=== PATIENT | female | born 1960 | race Caucasian/White ===

== ENCOUNTER → 2021-01-31 17:39 | Outpatient (CLI) | payer OTHER, SELFPAY ==
--- NOTE | ~2021-01-31 | MM_ITS ---
EXAMINATION: MM screening gomez BI w lolly HISTORY: Screening TECHNIQUE: Craniocaudal and mediolateral oblique 3-D tomosynthesis images were obtained and synthetic 2-D images were generated. CAD analysis was submitted and interpreted. COMPARISON: No prior mammogram is available for comparison at this institution. BREAST PARENCHYMAL COMPOSITION: There are scattered areas of fibroglandular density. FINDINGS: There are bilateral breast masses centered in the upper outer quadrant of both breasts as w ell as the periareolar location of the right breast. There are no suspicious calcifications or jhonathan ectural distortion. IMPRESSION: 1. Bilateral breast masses. 2. Additional mammographic views and possible breast ultrasound are recommended. BI-RADS Category 0: Incomplete: Needs additional imaging evaluation. Reviewed, dictated and finalized at location A. IMPRESSION: 1. Bilateral breast masses. 2. Additional mammographic views and possible breast ultrasound are recommended . BI-RADS Category 0: Incomplete: Needs additional imaging evaluation.
--- NOTE | ~2021-01-31 | DEXA_ITS ---
Bone Density Report Name: Ivy Stratton Age: 60 Sex: Female Ethnicity: White Date of : 1960 Indication: postmenopausal osteoporosis; Referring Provider: Jessica Guajardo Study: Bone densitometry was performed. Exam Date: January 31, 2021 Accession number: [id number] Bone Density: Region BMD T-score Z-score Classification AP Spine (L1-L4) 0.776 -2.5 -1.2 Osteoporosis Femoral Neck (Left) 0.563 -2.6 -1.4 Osteoporosis Total Hip (Left) 0.627 -2.6 -1.7 Osteoporosis Femoral Neck (Right) 0.550 -2.7 -1.5 Osteoporosis Total Hip (Right) 0.644 -2.4 -1.6 Osteopenia Total Hip Mean 0.636 -2.5 -1.7 Osteoporosis World Health Organization criteria for BMD impression classify patients as: Normal (T-score at or above -1.0), Osteopenia (T-score between -1.0 and -2.5), or Osteoporosis (T-score at or below -2.5). 10-year Fracture Risk: FRAX not reported because: Some T-score for Spine Total or Hip Total or Femoral Neck at or below -2.5 Previous Exams: Region Exam Age BMD T-score BMD Change BMD Change Date g/cm2 vs Baseline vs Previous AP Spine(L1-L4) 01/31/2021 60 0.776 -2.5 -0.035* 0.009 08/11/2017 56 0.768 -2.5 -0.044 -0.044 05/30/2014 53 0.811 -2.1 Total Hip(Left) 01/31/2021 60 0.627 -2.6 -0.040* -0.068 08/11/2017 56 0.695 -2.0 0.028 0.028 05/30/2014 53 0.667 -2.3 Total Hip(Right) 01/31/2021 60 0.644 -2.4 -0.024 -0.047 08/11/2017 56 0.691 -2.1 0.023 0.023 05/30/2014 53 0.668 -2.2 *Denotes significance at 95% confidence level, LSC for AP Spine = 0.022 g/cm2, LSC for Total Hip = 0.027 g/cm2 Clinical Information Provided by Patient: Has used the following medications: Vitamin D, Calcium, MTV Patient maximum height was 62.0 Menopause Age: 47 Drinks caffeinated beverages Onset of menses at age 14 Number of children 2 Impression: The patient has osteoporosis, based on the Right Femoral Neck T-score. No significant bone loss was observed. Discussion: INCREASED RISK OF FRACTURE. BONE DENSITY IS UNDESIRABLY LOW AT ONE OR MORE SKELETAL SITES, CONSISTENT WITH POSTMENOPAUSAL OSTEOPOROSIS. This patient's lowest T-score meets the World Health Organization's (WHO) criteria for osteoporosis at one or more sites (T-score -2.5 or below). In untreated patients, the risk of osteoporotic fracture increases approximately two-fold for ea
== END ==
PROVIDERS: PCP Family Medicine; Visit Provider Advanced Practice Midwife
DX: Z12.31 Encounter for screening mammogram for malignant neoplasm of breast (principal); Z13.820 Encounter for screening for osteoporosis; R92.8 Other abnormal and inconclusive findings on diagnostic imaging of breast; M81.0 Age-related osteoporosis without current pathological fracture; M85.851 Other specified disorders of bone density and structure, right thigh
CPT/HCPCS: 77063; 77067; 77080

== ENCOUNTER 2021-06-15 01:11 | Inpatient (IN) | payer OTHER, SELFPAY ==
[2021-06-15] VITALS (38 sets, daily range): BP systolic 140–169; BP diastolic 68–99; PULSE 59–106; RESP 12–28; TEMP 36.4–37.3; O2SAT 90–100; BMI 30.4
--- NOTE | ~2021-06-15 | CT_ITS ---
EXAMINATION: CT abdomen pelvis w con DATE: 06/15/2021 03:55 INDICATION: Abdominal pain. Nausea, chills and weakness. TECHNIQUE: Computed tomography (CT) of the abdomen and pelvis was performed with 100 mL Omnipaque-350 intravenous contrast. Automated exposure control and iterative reconstruction technique were employe d. The dose-length product was 444.69 mGy-cm. COMPARISON: None FINDINGS: Tiny calcified pleural plaque versus surgical clip along chronic band of discoid atelectasis/scarring in the right lower lobe. Heart size is normal. No pericardial or pleural effusion. Dense mitral ang lar calcification. Postoperative change of prior Elda-en-Y gastric bypass procedure. The proximal por tion of the stomach extends into a small sliding-type hiatal hernia. There is a swirled appearance to the Elda limb which undergoes two complete revolutions. The jejunojejunal anastomosis in the left ab domen. There is prominent mesenteric edema and pulmonary venous engorgement associated with multiple loops of small bowel. Portal veins appear to compress where the rapid 180 degrees around the superior mesenteric artery. There may be some mild wall thickening of the small bowel in the left abdomen but no dilated bowel to suggest obstruction. Normal appendix. Colon is unremarkable. No pneumatosis, abs cess or free intraperitoneal gas. Mild intra and extra hepatic biliary ductal dilation which appears slightly increased since the prior study. This could be related to prior cholecystectomy and sphincterotomy with surgical clips at the gallbladder fossa. A few small splenic calcifications consistent with old granulomatous disease. 1 cm fluid-filled likely duodenal diverticulum arising from the third portion of the duodenum. Pancreas, bilateral adrenal glands and left kidney are normal. 5 mm right renal cyst. Bladder, uterus and adnex a are unremarkable. Small amount of likely either reactive or physiologic free fluid in the right adn exal region. No pathologically enlarged abdominal or pelvic lymphadenopathy. Mild to moderate thoraco lumbar spondylosis. IMPRESSION: 1. Prior Elda-en-Y gastric bypass with the not excluded portion of the stomach extending into a small sliding-type hiatal hernia. 2. Possible wall thickening in the small bowel with associated portal vein engorgement and mesenteric edema. The dilated portal veins abruptly decompress where the clinical 180 degrees around the superi or mesenteric vein. This does not appear to be directly associated with a twist with 720 degree rotat ion of the Elda limb which is seen in the left abdomen and which is new since the prior study per dis cussion with Dr. Claire, the patient's lactate is not elevated and the planned this to further asses s for obstruction or mucosal abnormalities along the small bowel with a upper GI study. 3. Slight increase in mild intra and extra hepatic biliary ductal dilation which may relate to prior cholecystectomy and sphincterotomy. Correlate with liver function tests. Reviewed, dictated and finalized at location A. IESEL DIVISION MANAGER IMPRESSION: 1. Prior Elda-en-Y gastric bypass with the not excluded portion of the stomach extending into a small sliding-type hiatal hernia. 2. Possible wall thickening in the small bowel with associated portal vein engo rgement and mesenteric edema. The dilated portal veins abruptly decompress wher e the clinical 180 degrees around the superior mesenteric vein. This does not a ppear to be directly associated with a twist with 720 degree rotation of the Ro ux limb which is seen in the left abdomen and which is new since the prior stud y per discussion with Dr. Claire, the patient's lactate is not elevated and th e planned this to further assess for obstruction or mucosal abnormalities along the small
--- NOTE | ~2021-06-15 | XR_ITS ---
EXAMINATION: XR abdomen NG/feed tube insert DATE: 06/15/2021 07:10 INDICATION: Post nasogastric tube placement TECHNIQUE: A supine view of the abdomen and lower chest was obtained for evaluation of feeding tube placement. COMPARISON: CT dated 06/15/2021 FINDINGS: Nasogastric tube tip in proximal side port in the stomach. Suture line in the left upper quadrant con sistent with prior gastric bypass procedure. Cholecystectomy clips in right upper quadrant. Excreted contrast in the bilateral kidneys related to the earlier contrast-enhanced CT. Mild bibasilar atelect asis. Cardiomediastinal silhouette is normal. Mild S-shaped curvature of the thoracolumbar spine. IMPRESSION: 1. Nasogastric tube in the stomach. Reviewed, dictated and finalized at location A. TRIC LOCOMOTIVE CRANE OPERATOR
--- NOTE | ~2021-06-15 | XR_ITS ---
EXAMINATION: XR UGI water soluble w sbs DATE: 06/15/2021 12:49 INDICATION: Abdominal pain with possible small bowel obstruction. TECHNIQUE: Water-soluble contrast was injected into the patient's existing nasogastric tube. Conventi onal supine abdomen radiographs and fluoroscopic spot radiographs of the esophagus, stomach, and prox imal small bowel were obtained. Additional overhead radiographs were obtained during the transit thro ugh the small bowel. Fluoroscopy exposure time was 1.1 minutes. Total of 10 overhead radiographs and 23 fluoroscopic images were recorded. Total DAP was 20.263 mGycm^2. COMPARISON: CT dated 06/15/2021 FINDINGS: Small sliding-type hiatal hernia. There was a small amount of gastroesophageal reflux observed during the contrast injection. Elda-en-Y gastric bypass with nonobstructing volvulus of the Elda limb. Ther e is prompt passage of contrast beyond the jejunojejunal anastomosis. There is partial small bowel ob struction in the left upper quadrant located approximately 50-60 cm distal to the jejunojejunal anast omosis. Contrast is first seen extending into relatively decompressed small bowel distal to the obstr uction at the 1 1/2 hour time point. Contrast reaches the colon by 3 hours. Through 4 hours the small bowel distal to the obstruction remains relatively decompressed with persistent mild dilation of the small bowel proximal to the site of obstruction. There is normal caliber and mucosal fold pattern th roughout the small bowel. No mucosal fold thickening to suggest small bowel mural edema. Cholecystect venecia clips in right upper quadrant. Excreted contrast the bladder from the earlier contrast-enhanced C T. IMPRESSION: 1. Partial small bowel obstruction in the left upper quadrant approximately 50-60 cm distal to the je junojejunal anastomosis of a Elda-en-Y gastric bypass. 2. Small sliding-type hiatal hernia with small amount of gastroesophageal reflux. Reviewed, dictated and finalized at location A. ITALITY TEAM MEMBER IMPRESSION: 1. Partial small bowel obstruction in the left upper quadrant approximately 50- 60 cm distal to the jejunojejunal anastomosis of a Elda-en-Y gastric bypass. 2. Small sliding-type hiatal hernia with small amount of gastroesophageal reflu x.
[2021-06-15 01:59] LABS: Basophils Percent Auto 0.3 % (0.2-1.2); Hematocrit 39.6 % (37.0-47.0); Hemoglobin 13.9 g/dL (12.0-15.0); Immature Granulocyte Absolute 0.02 K/mm3 (0.00-0.031); Immature Granulocyte Percent A 0.3 % (0-0.5); Lymphocytes Absolute Auto 0.69 K/mm3 (0.9-3.2); Lymphocytes Percent Auto 9.6 % (18.3-44.2); Mean Corpuscular HGB Conc 35.1 g/dl (32-36); Mean Corpuscular Hemoglobin 35.7 pg (26-34); Mean Corpuscular Volume 101.8 fl (80-100); Mean Platelet Volume 9.2 fl (7.4-10.4); Monocytes Absolute Auto 0.2 K/mm3 (0.1-0.6); Monocytes Percent Auto 2.2 % (2.6-8.5); Neutrophils Absolute Auto 6.3 K/mm3 (1.3-6.7); Neutrophils Percent Auto 87.6 % (45.5-73.1); Platelet Count Result 328 k/mm3 (150-375); Red Blood Count 3.89 M/mm3 (4.2-5.4); Red Cell Distribution Width 12.1 % (11.5-14.5); White Blood Count 7.2 K/mm3 (4.5-10.0)
[2021-06-15 02:09] LABS: Alanine Aminotransferase 45 U/L (4-35); Albumin Level 4.4 g/dL (3.5-5.1); Alkaline Phosphatase 196 U/L (38-126); Anion Gap 13 mmol/L (8-16); Aspartate Amino Transferase 38 U/L (14-36); Bilirubin,Total 1.2 mg/dL (0.2-1.3); Blood Urea Nitrogen 11 mg/dL (7-17); Calcium 9.5 mg/dL (8.4-10.2); Carbon Dioxide 27 mmol/L (22-30); Chloride 98 mmol/L (98-107); Estimated CRCL calculation 93 ml/min; Estimated Glomerular Filt Rate > 60; Glucose 200 mg/dL (65-110); Lipase 22 U/L (23-300); Potassium 3.8 mmol/L (3.4-5.0); Sodium 138 mmol/L (137-145)
[2021-06-15] MEDS: PROCHLORPERAZINE EDISYLATE 10 MG/2 ML VIAL IV PUSH (03:15)
[2021-06-15] MEDS: SODIUM CHLORIDE 0.9% IV 1,000 ML 999 ML IV CONT (03:15)
[2021-06-15] MEDS: diphenhydrAMINE HCl INJ 50 MG/ML VIAL IV PUSH (03:15)
[2021-06-15] MEDS: MORPHINE SULFATE (*CRX) 4 MG/ML INJ IV PUSH ×5 (03:15→19:56)
--- NOTE | 2021-06-15 04:41 | ED.GENADULT ---
HPI - General Adult General Chief complaint: Abdominal Pain Stated complaint: nausea, chills Time Seen by Provider: 06/15/21 02:59 History of Present Illness HPI narrative: Patient 60-year-old female presents emergency department with chief complaint of abdominal pain and nausea and feeling as though she wants to vomit. The patient reports that she has history of a gastric bypass and has developed fistulas before in her abdomen and required surgery that was done at a hospital in [facility]. The patient states that she now has discomfort throughout her abdomen reports is not improved by anything nor is worsened by anything. Related Data Allergies Allergy/AdvReac Type Severity Reaction Status Date / Time poison keo extract Allergy Unknown RASH Verified 06/15/21 02:53 vancomycin Allergy Unknown Unknown Verified 06/15/21 02:53 adhesive tape AdvReac Unknown RASH,ITCHIN Verified 06/15/21 02:53 G codeine AdvReac Unknown NAUSEA Verified 06/15/21 02:53 Review of Systems Review of Systems: A 10 system review of systems was completed on the patient and is negative except for what is stated in the HPI. Nursing and ancillary documentation was reviewed. 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 HEAD: Normocephalic, atraumatic. EYES: PERRLA and EOMI. ENT: Nares clear, no rhinorrhea or epistaxis. Mucous membranes moist. NECK: Supple. CHEST: Clear to auscultation. No respiratory distress. HEART: Regular rate and rhythm. No murmur heard. Normal peripheral pulses. ABDOMEN: Soft, diffusely tender to palpation, nondistended, normal active bowel sounds. EXTREMITIES: Normal range of motion. No edema. SKIN: Warm, dry, no rash. NEURO: No focal deficits. Alert and oriented x3. PSYCH: Normal mood and affect. Course Course Emergency Course: CT scan showed evidence of a small bowel volvulus. The case was discussed with Dr. Claire who is on-call for general surgery. Dr. Claire is currently reviewing the images and will see the patient. Given her complicated surgical history Dr Claire requested the case be discussed with both [place] and [facility] for possible transfer. Both were contacted and are currently on multi day wait lists and are not adding new patients to the list at this time. Vital Signs Vital signs: Vital Signs Temperature 36.4 C 06/15/21 01:18 Pulse Rate 59 L 06/15/21 01:18 Respiratory Rate 19 06/15/21 01:18 Blood Pressure 153/92 H 06/15/21 01:18 Pulse Oximetry 100 06/15/21 01:18 Temperature 36.4 C 06/15/21 01:18 Pulse Rate 77 06/15/21 04:35 Respiratory Rate 16 06/15/21 04:35 Blood Pressure 140/76 06/15/21 04:35
[2021-06-15] MEDS: ONDANSETRON INJ 4 MG/2 ML VIAL IV PUSH ×3 (06:17→13:37)
--- NOTE | 2021-06-15 06:38 | PC.NURSE ---
Pt states she is unable to urinate at this time.
[2021-06-15 06:57] LABS: Lactic Acid Reflex 1.4 mmol/L (0.7-2.1)
--- NOTE | 2021-06-15 08:14 | PM.IMHP ---
H&P: HPI History of Present Illness Date/Time: 06/15/21 08:14 Chief Complaint: Upper abdominal pain with nausea and vomiting. Narrative: The patient is a 60-year-old white female who presented to the emergency department early this AM (06/15) with chief complaint of abdominal pain and nausea and feeling as though she wants to vomit. The patient reports that she has history of a Leslie en -Y gastric bypass [id number] and in 2017 -2018 developed fistulas in her abdomen and required surgery that was done at a hospital in [place], [place]. She states that this was done by a Dr. Aleman laparoscopically and her impression of what was done was a hiatal hernia repair bringing the gastric pouch back down into the abdomen and perhaps takedown of a gastro-gastric fistula. She states that since recovering from that surgery she has been doing fairly well. She states that the current problem started at 4:30 p.m. yesterday ( 06/14/2021). She had had a normal lunch and was feeling okay until about that time at which time she also then felt nauseated and had dry heaving several times. She has had loose stools once or twice both at home and once here after arriving in the hospital to the ED. The patient states that she now has discomfort throughout her abdomen ( mainly above the level of the umbilicus) and reports is not improved by anything nor is worsened by anything. Workup in the emergency department prior to consultation with me revealed a normal white count, electrolytes and lipase to all be fairly normal. Slight elevation of some LFTs. Subsequent lactic acid at my request was normal. CT scan of the abdomen and pelvis shows some twisting of the mesentery in the upper abdomen but it is difficult to tell whether this is related to her 2 previous upper abdominal surgeries or is new causing a problem. Review of Systems Review of Systems: All systems reviewed & are unremarkable except as noted in HPI and below (HPI) Constitutional: Constitutional: Reports as per HPI, Reports no additional constitutional complaints, Denies chills and Denies fever(s) Eyes: Eyes: Reports no additional eye complaints ENT: Reports Normal hearing present and Denies dizziness Cardiovascular: Cardiovascular: Reports no additional cardiovascular complaints, Denies chest pain and Denies irregular heart rhythm Respiratory: Respiratory: Reports no additional respiratory complaints Gastrointestinal: Gastrointestinal: Reports no additional gastrointestinal complaints, Denies abdominal pain, Denies bloating, Reports loose stools, Reports nausea and Reports vomiting ( Mainly dry heaves since 4:30 p.m. 06/14/2021.) Comments: prior to 4:30 p.m. on 06/14/2021 patient had not noticed any specific abdominal problems and states that she had been feeling fairly well maintaining her usual or current weight over the last several months and since her 2019 surgery in [place], [place]. Genitourinary: Genitourinary: Reports no additional female genitourinary complaints and Denies hematuria Musculoskeletal: Musculoskeletal: Denies back pain Integumentary/Breasts: Skin/Breast: Reports system reviewed and no additional complaints, except as docu Neurologic: Reports Normal hearing present, Denies Abnormal speech present, Denies confusion and Denies dizziness Psychiatric: Psychiatric: Reports no additional psychiatric complaints and Denies confusion Endocrine: Endocrine: Reports no additional endocrine complaints Hematologic/Lymphatic: Hematologic/Lymphatic: Denies easy bleeding and Denies easy bruising Allergic/Immunologic: Allergic/Immunologic: Reports no additional allergic/immunologic complaints [facility] Past Medical History Medical History (Updated 06/15/21 @ 08:23 by Geronimo Claire MD) Acne vulgaris Chronic low back pain without sciatica GERD without esophagitis History of COVID-19 06/2020 Vitamin D deficiency Surgical History Surgical History (Updated 06/15/21 @ 08:23 by Geronimo
--- NOTE | 2021-06-15 08:30 | PC.NURSE ---
Pt taking to x ray for small bowel study
[2021-06-15] MEDS: SODIUM CHLORIDE 0.9% IV 1,000 ML 125 ML IV CONT ×2 (09:41→19:58)
[2021-06-15] MEDS: HALOPERIDOL LACTATE 5 MG/ML VIAL 2 MG IV PUSH (09:41)
[2021-06-15 10:42] LABS: Lactic Acid Reflex 1.1 mmol/L (0.7-2.1)
--- NOTE | 2021-06-15 13:46 | PC.NURSE ---
GI at bedside. Verbal orders to hook patient NG back to low intermittent suction. Morphine and zofran given for pain and nausea.
--- NOTE | 2021-06-15 14:49 | PC.NURSE ---
This patient, Ivy Stratton, was admitted to [facility] Surg Room 321-02. Patient/family oriented to hospital policies and general routines including ID bracelet, bed and alarms, visiting hours, pain management, procedures, bathroom and other care routines, personal items, smoking policy, room service/diet, and visiting hours. Information on how to activate the Rapid Response Team has been discussed. Patient/Family are encouraged to report perceived risks to care and to ask questions if they do not understand what they are told or what they should do.
--- NOTE | 2021-06-15 22:47 | PC.NURSE ---
Patient transferred to [facility]. Report to BIJAL Burton.
--- NOTE | 2021-07-14 16:55 | PM.TDS ---
Transfer Discharge Sum: Prov Provider Date of admission: 06/15/21 07:58 Primary care physician: Susan Montana MD Admitting clinician: Geronimo Claire MD DS: Admitting Diagnosis Discharge Date 06/15/21 Admitting Diagnosis 1. Upper abdominal pain on known etiology DS: Discharge Diagnosis Discharge Diagnosis (1) Small bowel volvulus: Code(s): K56.2 - Volvulus Status: Acute Assessment and Plan: This was shown by the CT scan during workup in the ED. Subsequently an upper GI small-bowel follow-through showed definite transition to more normal small bowel about jail through the small bowel and there was some slowed transit. Because of this the patient's complicated previous surgical history in the abdomen it was felt that the patient would be best suited to be in the hands of a specialty GI surgeon who is well-versed in laparoscopy for complications after Elda Y gastric bypass. Therefore, I consulted the help line at [facility]. They put me in contact with Dr. Grant zaldivar who was on-call for minimally evasive surgery and he accepts the patient in transfer. Radiology was helpful in pushing the radiology studies to [facility] and also creating a discs that had them on it to go with the patient. Nursing was helpful in helping arrange transportation for the patient to [facility] for the transfer. (2) Upper abdominal pain: Code(s): R10.10 - Upper abdominal pain, unspecified Status: Acute Assessment and Plan: It is suspected that this is caused by a internal hernia or adhesions related to the patient's previous multiple intra-abdominal surgeries. Transfer Discharge Sum: Med Medications Active and Home Medications: Home Medications Adult One Daily Multivitamin 1 tablet PO DAILY 06/15/21 [History Confirmed 06/15/21] cholecalciferol (vitamin D3) 2,000 mcg PO BID 06/15/21 [History Confirmed 06/15/21] Transfer Discharge Sum: Hosp Hospital Course Hospital course: Ivy Stratton is a 60 year old female Who presented to the [place] emergency room early this morning. Workup in the emergency department prior to consultation with me revealed a normal white count, electrolytes and lipase to all be fairly normal. Slight elevation of some LFTs. Subsequent lactic acid at my request was normal. CT scan of the abdomen and pelvis shows some twisting of the mesentery in the upper abdomen but it is difficult to tell whether this is related to her 2 previous upper abdominal surgeries or is new causing a problem. Subsequently we mid the patient to the hospital and the NG tube that was placed in the emergency room to decompress and stop the patient's vomiting allowed us to perform a upper GI small bowel follow-through to assess the patient's altered anatomy within the abdomen. Although the dye did passed to the colon in 4 hours it was felt that there was still a definite slow down and some evidence of twisting of the bowel and mesentery suggestive of partial bowel obstruction related to an abnormality within the patient's abdomen. In view of the patient's multiple previous surgeries including a Elda-en-Y gastric bypass I felt that she would be best served in the hands of a GI specialist surgeon. Therefore, I contacted the [facility] transfer line and the Dr. Grant Zaldivar excepted the patient in transfer after a clinical discussion. Time Spent with Patient Time attestation: Total time spent providing and/or coordinating transfer services: Total time spent: Less than 30 minutes Exam Const: General: cooperative, healthy appearing, comfortable, well developed, alert, awake, anxious and uncomfortable ( mainly upper abdominal pain and nausea.); No confusion Orientation/consciousness: patient oriented x3 and No confusion HENMT: Head: normal to inspection Ears: hearing grossly normal bilaterally Mouth: Yes moist mucous membranes Teeth and gingiva: dentition normal Eyes: General: appearance nor
== END 2021-06-15 22:46 | disposition short-term general hospital (02) | DRG 390 ==
LOC: ANHED 07:06 → ANH3MEDSUR 10:07
PROVIDERS: Emergency Medicine; Admitting Provider Surgery; Emergency Provider Emergency Medicine; PCP Family Medicine; Visit Provider Surgery
DX: K56.2 Volvulus (principal); R10.10 Upper abdominal pain, unspecified; L70.0 Acne vulgaris; K21.9 Gastro-esophageal reflux disease without esophagitis; E55.9 Vitamin D deficiency, unspecified; Z28.21 Immunization not carried out because of patient refusal; Z86.16 Personal history of COVID-19; Z98.84 Bariatric surgery status
CPT/HCPCS: 36415; 74177; 74240; 74248; 80053; 83605; 83690; 85025; 96361; 96374; 96375; 96376; 99285; J0780; J1200; J1630; J2270; J2405; J7030; Q9967

== ENCOUNTER 2021-07-31 05:39 | Inpatient (IN) | payer OTHER, SELFPAY ==
[2021-07-31] VITALS (15 sets, daily range): BP systolic 91–137; BP diastolic 66–95; PULSE 98–126; RESP 14–30; TEMP 35.8–36.3; O2SAT 87–100; BMI 28.0
--- NOTE | ~2021-07-31 | CT_ITS ---
EXAMINATION: CTA chest PE abdomen pel DATE: 07/31/2021 07:50 ADJUNCT ENGLISH INSTRUCTOR INDICATION: Chest pain. History of DVT. Abdominal pain. TECHNIQUE: Computed tomographic angiography (CTA) of the chest, abdomen and pelvis was performed with 100 mL Omnipaque-350 intravenous contrast. The dose-length product was 1102.60 mGy-cm. Maximum inten sity projection 3D-reconstructions of the aorta and other arteries were constructed by the [employer] st on a separate workstation. Automated exposure control and iterative reconstruction technique were employed. COMPARISON: CT dated 06/15/2021. FINDINGS: CHEST: Study is technically limited. There is pulmonary embolism involving the main pulmonary arterie s and bilateral segmental and subsegmental pulmonary arteries, moderate thrombus burden. Small left p leural effusion. There is mediastinal lymphadenopathy. There are cholecystectomy clips. Moderate size hiatal hernia with gastric bypass surgery changes. There is dependent atelectasis. There are subpleu ral bands in the right mid and lower lung, likely reflecting mild chronic interstitial disease. No pn eumothorax. No endobronchial lesions. ABDOMEN: Fatty infiltration of the liver. There are cholecystectomy clips. The spleen, pancreas, adre nal glands and kidneys are unremarkable. Nonobstructive bowel gas pattern. There is mild diffuse smal l bowel wall thickening, suspicious for enteritis. No acute osseous abnormality. Moderate thoracic sp ondylosis. IMPRESSION: 1. Bilateral pulmonary embolism involving the main pulmonary arteries, bilateral segmental and subseg mental pulmonary arteries, moderate-large thrombus burden. 2: Bilateral predominantly lower lobe atelectasis. 3: Small left pleural effusion. 4: Mediastinal lymphadenopathy, likely reactive. 5: Mild diffuse small bowel wall thickening, suspicious for enteritis. No obstruction. Dr. Braeden Foster discussed with Dr. Kezia MD at 07/31/2021 07:58 ADJUNCT ENGLISH INSTRUCTOR. Reviewed, dictated and finalized at location A. NCT ENGLISH INSTRUCTOR IMPRESSION: 1. Bilateral pulmonary embolism involving the main pulmonary arteries, bilatera l segmental and subsegmental pulmonary arteries, moderate-large thrombus burden . 2: Bilateral predominantly lower lobe atelectasis. 3: Small left pleural effusion. 4: Mediastinal lymphadenopathy, likely reactive. 5: Mild diffuse small bowel wall thickening, suspicious for enteritis. No obstr uction. Dr. Braeden Foster discussed with Dr. Kezia MD at 07/31/2021 07:58 ADJUNCT ENGLISH INSTRUCTOR.
--- NOTE | ~2021-07-31 | XR_ITS ---
XR chest 1V portable 07/31/2021 06:52 Indication: Chest pain. Recent surgery. Procedure: AP portable chest Comparison: 12/27/2018 Findings: Heart size is normal. There is bibasilar atelectasis/scarring, unchanged. No significant ef fusion or pneumothorax. No acute osseous abnormality. Impression: 1: Chronic bibasilar atelectasis/scarring. Reviewed, dictated and finalized at location A. OW UP SPECIALIST Impression: 1: Chronic bibasilar atelectasis/scarring.
--- NOTE | ~2021-07-31 | US_ITS ---
EXAMINATION:US venous doppler LE BI INDICATION:Left lower extremity pain and swelling. History of right lower extremity DVT. Extensive pu lmonary embolism seen on recent CT examination. TECHNIQUE: Multiple grayscale, color flow and Doppler images of the right and left lower extremity de ep venous systems were obtained and reviewed. COMPARISON:CTA dated 07/31/2021 FINDINGS: The right common femoral, superficial femoral and popliteal veins demonstrate normal respir atory variation, augmentation and compressibility. Color flow is also seen within the posterior tibi al, peroneal, greater saphenous and profunda veins. There is deep venous thrombosis of the left femoral and popliteal veins. IMPRESSION: 1: Deep venous thrombosis of the left femoral and popliteal veins. Reviewed, dictated and finalized at location A. ING SPECIALIST
--- NOTE | 2021-07-31 05:52 | ECG_ITS ---
Measurements Intervals [place] Rate: 97 P: 47 OK: 153 QRS: 3 QRSD: 104 T: 2 QT: 390 QTc: 498 Interpretive Statements SINUS RHYTHM BORDERLINE T WAVE ABNORMALITY- ANT/INF LEADS BASELINE WANDER- V6 BORDERLINE ECG Electronically Signed On 07-31-2021 7:22:29 DETAIL MANAGER by Desmond Parry D.O.
--- NOTE | 2021-07-31 06:11 | ED.GENADULT ---
HPI - General Adult General Chief complaint: Shortness of Breath/Dyspnea <Zac Raymond MD - Last Filed: 07/31/21 06:13> Stated complaint: SOB <Zac Raymond MD - Last Filed: 07/31/21 06:13> Time Seen by Provider: 07/31/21 06:02 <Zac Raymond MD - Last Filed: 07/31/21 06:13> History of Present Illness HPI narrative: Patient 60-year-old female who presents the emergency department with chief complaint of chest pain and shortness of breath. Patient reports she had history of intra-abdominal surgery back in June for a hernia. The patient states that she has had prior history of a DVT and has started having pain in her right chest wall and left chest wall that radiates up to her neck. The patient states that the pain is worse with inspiration and this is causing her to feel short of breath. The patient does report that she has had some fevers <Zac Raymond MD - Last Filed: 07/31/21 06:13> Related Data Home medications: Home Medications Medication Instructions Recorded Confirmed Adult One Daily Multivitamin 1 tablet PO DAILY 06/15/21 06/15/21 cholecalciferol (vitamin D3) 2,000 mcg PO BID 06/15/21 06/15/21 <Zac Raymond MD - Last Filed: 07/31/21 06:13> Allergies/adverse reactions: Allergies Allergy/AdvReac Type Severity Reaction Status Date / Time poison keo extract Allergy Unknown RASH Verified 07/31/21 06:02 vancomycin Allergy Unknown Unknown Verified 07/31/21 06:02 adhesive tape AdvReac Unknown RASH,ITCHIN Verified 07/31/21 06:02 G codeine AdvReac Unknown NAUSEA Verified 07/31/21 06:02 <Zac Raymond MD - Last Filed: 07/31/21 06:13> Review of Systems Review of Systems: A 10 system review of systems was completed on the patient and is negative except for what is stated in the HPI. Nursing and ancillary documentation was reviewed. 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 History of umbilical hernia repair 1993 <Zac Raymond MD - Last Filed: 07/31/21 06:13> Family History Family History: Family History Mother Diabetes mellitus Hypertension Father Carcinoma of colon <Zac Raymond MD - Last Filed: 07/31/21 06:13> Social History Social History: Social History Smoking status: Never smoker Second hand tobacco smoke exposure: No Alcohol intake: current Drinks per week: 3 Substance use: never Substance use type: does not use Additional living arrangements comments: Boyfriend Gender identity (if verbalized by the patient): Female Sexual Orientation (if Verbalized by the Patient): Straight or Heterosexual Spiritual care concerns: No <Zac Raymond MD - Last Filed: 07/31/21 06:13> Exam Narrative: GENERAL: Well-appearing, well-nourished, and in no acute distress. HEAD: Normocephalic, atraumatic. EYES: PERRLA and EOMI. ENT: Nares clear, no rhinorrhea or epistaxis. Mucous membranes moist. NECK: Supple. CHEST: Clear to auscultation. No respiratory distress. HEART: Regular r
[2021-07-31] MEDS: MORPHINE SULFATE (*CRX) 4 MG/ML INJ IV PUSH ×2 (06:19→12:07)
[2021-07-31 06:45] LABS: Basophils Percent Auto 0.5 % (0.2-1.2); Eosinophils Absolute Auto 0.1 K/mm3 (0-0.3); Hematocrit 39.6 % (37.0-47.0); Hemoglobin 13.6 g/dL (12.0-15.0); Immature Granulocyte Absolute 0.03 K/mm3 (0.00-0.031); Immature Granulocyte Percent A 0.3 % (0-0.5); Lymphocytes Absolute Auto 1.73 K/mm3 (0.9-3.2); Lymphocytes Percent Auto 20.1 % (18.3-44.2); Mean Corpuscular HGB Conc 34.3 g/dl (32-36); Mean Corpuscular Hemoglobin 33.7 pg (26-34); Mean Corpuscular Volume 98.3 fl (80-100); Mean Platelet Volume 9.6 fl (7.4-10.4); Monocytes Absolute Auto 0.7 K/mm3 (0.1-0.6); Monocytes Percent Auto 7.5 % (2.6-8.5); Neutrophils Absolute Auto 6.1 K/mm3 (1.3-6.7); Neutrophils Percent Auto 70.6 % (45.5-73.1); Platelet Count Result 322 k/mm3 (150-375); Red Blood Count 4.03 M/mm3 (4.2-5.4); Red Cell Distribution Width 12.3 % (11.5-14.5); White Blood Count 8.6 K/mm3 (4.5-10.0)
[2021-07-31 07:00] LABS: Lactic Acid Reflex 0.9 mmol/L (0.7-2.1)
[2021-07-31 07:01] LABS: Alanine Aminotransferase 65 U/L (4-35); Albumin Level 3.4 g/dL (3.5-5.1); Alkaline Phosphatase 241 U/L (38-126); Anion Gap 10 mmol/L (8-16); Aspartate Amino Transferase 61 U/L (14-36); Bilirubin,Total 0.6 mg/dL (0.2-1.3); Blood Urea Nitrogen 6 mg/dL (7-17); Calcium 8.4 mg/dL (8.4-10.2); Carbon Dioxide 26 mmol/L (22-30); Chloride 99 mmol/L (98-107); Estimated CRCL calculation 81 ml/min; Estimated Glomerular Filt Rate > 60; Glucose 96 mg/dL (65-110); Lipase 26 U/L (23-300); Magnesium 1.7 mg/dL (1.6-2.3); Potassium 2.7 mmol/L (3.4-5.0); Sodium 135 mmol/L (137-145)
[2021-07-31] MEDS: HYDROmorphone HCL INJ (*CRX) 1 MG/ML SYR IV PUSH (07:04)
[2021-07-31 07:14] LABS: SARS-CoV-2 RNA PCR Negative
[2021-07-31 07:14] LABS: NT Pro B Type Natriuretic Pept 1240 pg/mL (5-100); Troponin I 0.073 ng/mL (0.000-0.034)
[2021-07-31 07:21] LABS: INR 1.1; Prothrombin Time 13.8 Seconds (11.1-14.7)
[2021-07-31 07:22] LABS: Partial Thromboplastin Time 33.5 SECONDS (22.3-36.8)
[2021-07-31] MEDS: POTASSIUM CHLORIDE INJ 40 MEQ in SODIUM CHLORIDE 0.9% IV 500 ML 130 MEQ IVPB (07:47)
[2021-07-31] MEDS: ASPIRIN 81 MG CHEWABLE TABLET 324 MG PO (07:51)
[2021-07-31] MEDS: POTASSIUM CHLORIDE 20 MEQ PACKET (FOR LIQUID) 40 MEQ PO ×2 (08:18→17:48)
[2021-07-31] MEDS: ENOXAPARIN 80 MG/0.8 ML SYRINGE 75 MG SUB-Q (08:19)
[2021-07-31 09:59] LABS: Troponin I 0.061 ng/mL (0.000-0.034)
--- NOTE | 2021-07-31 11:01 | PM.IMHP ---
H&P: HPI History of Present Illness Date/Time: 07/31/21 11:01 Chief Complaint: Dyspnea and chest pain Narrative: 60-year-old female was admitted [facility] in late June and found to have possible internal hernia versus adhesions related to her previous gastric bypass surgery with a Elda on why and asked emesis. She was transferred to [facility] on July 14, 2021. She underwent open surgical repair July 17. She did receive a COVID and flu booster in early July as well. She did not feel well for the days following that. July 28 she noticed a temperature 100.4?. July 30 she continued to feel tired and achy. She had pain in the left side with deep inspiration it was moderately severe. She took Tylenol for relief. However on July 31 she noted severe pain in her right side with inspiration. It was not positional. She was short of breath with any exertion. She also noted on July 30 that her left calf seem more swollen than her right. The vein seemed to be ?popped out?. It was a bit tender to touch. There is no redness. In 2003 she had a left leg popliteal vein deep venous thrombosis. She does not recall any injury or surgery at that time. She believes this was treated with ?shots? that she had to administer herself at home for several days. She denied any family history of thromboembolic disease. She does not take any estrogen containing products. She has had no recent injuries or prolonged sedentary periods except for her perioperative course. She denied any prior history of chest pain or breathing difficulties. She denied any abnormal bleeding. She denied any change in GI or function. 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 History of umbilical hernia repair 1993 Family History Family History Mother Diabetes mellitus Hypertension Father Carcinoma of colon Grandparent Heart attack Social History Social History (Updated 07/31/21 @ 17:28 by Edwin Quigley MD) Social History: She works in a [employer] center. . Does not have a living will. Has not designated a healthcare power of business attorney. Smoking status: Never smoker Second hand tobacco smoke exposure: Yes (Previous smoked in home for 30 years.) Alcohol intake: never Substance use: never Substance use type: does not use Living arrangements: with friend(s) Additional living arrangements comments: Boyfriend Occupation/Education: occupation Additional occupation/education comments: Call center Gender identity (if verbalized by the patient): Female Sexual Orientation (if Verbalized by the Patient): Straight or Heterosexual Spiritual care concerns: No Meds Home Medications and Allergies Home Medications Medication Instructions Recorded Confirmed Type Adult One Daily Multivitamin 1 tablet PO DAILY 06/15/21 07/31/21 History Allergies Allergy/AdvReac Type Severity Reaction Status Date / Time poison keo extract Allergy Unknown RASH Verified 07/31/21 06:02 vancomycin Allergy Unknown Unknown Verified 07/31/21 06:02 adhesive tape AdvReac Unknown RASH,ITCHIN Verified 07/31/21 06:02 G codeine AdvReac Unknown NAUSEA Verified 07/31/21 06:02 Vital Sig
[2021-07-31] MEDS: LACTATED RINGERS 1,000 ML 125 ML IV CONT (11:50)
[2021-07-31 14:45] LABS: Troponin I 0.048 ng/mL (0.000-0.034)
--- NOTE | 2021-07-31 15:23 | PC.NURSE ---
Addendum entered by Lidia Geronimo RN 07/31/21 15:24: Report received at 1445. Original Note: Report received by BIJAL Hopson with the ED department. All questions answered and plan of care reviewed. Patient to go to IMU room 203.
--- NOTE | 2021-07-31 15:23 | ADMGEN ---
This patient, Ivy Stratton, was admitted to IMU Room 203-01 at 1507 from the ED. Patient/family oriented to hospital policies and general routines including ID bracelet, bed and alarms, visiting hours, pain management, procedures, bathroom and other care routines, personal items, smoking policy, room service/diet, and visiting hours. Information on how to activate the Rapid Response Team has been discussed. Patient/Family are encouraged to report perceived risks to care and to ask questions if they do not understand what they are told or what they should do.
[2021-07-31] MEDS: HYDROcodone/acetaminophen (*CRX) 5-325 MG TABLET 1 TAB PO (17:56)
[2021-07-31] MEDS: ENOXAPARIN 80 MG/0.8 ML SYRINGE 70 MG SUB-Q (20:28)
[2021-07-31 20:31] LABS: Anion Gap 6 mmol/L (8-16); Blood Urea Nitrogen 6 mg/dL (7-17); Carbon Dioxide 25 mmol/L (22-30); Chloride 101 mmol/L (98-107); Estimated CRCL calculation 93 ml/min; Estimated Glomerular Filt Rate > 60; Glucose 121 mg/dL (65-110); Potassium 3.9 mmol/L (3.4-5.0); Sodium 132 mmol/L (137-145)
[2021-07-31 21:27] LABS: Hepatitis B Surface Antigen Negative (Negative)
[2021-07-31 21:32] LABS: HAV RESULT Negative (Negative); Hepatitis B Core IgM Result Negative (Negative)
[2021-07-31 21:44] LABS: Hepatitis C Virus Antibody Negative (Negative)
[2021-07-31] MEDS: MELATONIN 3 MG TABLET PO (23:15)
[2021-08-01] VITALS (16 sets, daily range): BP systolic 121–148; BP diastolic 76–95; PULSE 88–128; RESP 12–21; TEMP 35.9–37.4; O2SAT 92–99
--- NOTE | 2021-08-01 | ECHO_ITS ---
Patient Info Name: Ivy Stratton Age: 60 years : 1960 Gender: Female Ht: 62 in Wt: 158 lbs BSA: 1.79 m2 HR: 117 bpm BP: 148 / 95 mmHg Heart Rhythm: Sinus Rhythm Technical Quality: Fair Exam Date: 08/01/2021 8:30 AM Exam Location: [facility] Patient Status: Inpatient Admit Date: 07/31/2021 Staff Ordering Physician: Edwin Quigley MD Shaker Tender: Magda Choudhury RDCS Attending Provider: Edwin Quigley MD Referring Physician: Soraida CAMPBELL; Exam Type: CA echo doppler color flow Study Info Indications - PE with elevated TnI Complete two-dimensional, color flow and Doppler transthoracic echocardiogram is performed. Summary 1. Complete two-dimensional, color flow and Doppler transthoracic echocardiogram is performed. 2. Left ventricular chamber dimension is normal. 3. Left ventricular systolic function is normal, estimated at 60-65%. 4. The left ventricular diastolic function is grade I diastolic dysfunction. 5. E/e' 12 is mildly elevated. 6. Right ventricular chamber dimension is mildly enlarged. 7. The mitral valve has moderately calcified annulus. 8. There is mild to moderate tricuspid valve regurgitation. 9. Mild pulmonary hypertension, estimated pulmonary arterial systolic pressure is 49 mmHg. 10. Dilated inferior vena cava with >50% collapse upon inspiration consistent with elevated right atrial pressure, 10 mmHg. Left Ventricle E/e' 12 is mildly elevated. Left ventricular chamber dimension is normal. Left ventricular systolic function is normal, estimated at 60-65%. The left ventricular diastolic function is grade I diastolic dysfunction. Right Ventricle Right ventricular systolic function is normal and with normal TAPSE 1.9 cm. Right ventricular chamber dimension is mildly enlarged. Left Atria Left atrial chamber dimension is normal. Right Atria Right atrial chamber dimension is normal. Aortic Valve The aortic valve is trileaflet. There is no aortic valve stenosis. There is no aortic valve regurgitation. Pulmonic Valve There is no pulmonic regurgitation. Mitral Valve The mitral valve has moderately calcified annulus. There is no mitral valve stenosis. There is trace mitral valve regurgitation. Tricuspid Valve There is mild to moderate tricuspid valve regurgitation. Mild pulmonary hypertension, estimated pulmonary arterial systolic pressure is 49 mmHg. Pericardium/Pleural There is no pericardial effusion. Inferior Vena Cava Dilated inferior vena cava with >50% collapse upon inspiration consistent with elevated right atrial pressure, 10 mmHg. Aorta The aortic root size at the sinus of Valsalva is normal. Left Ventricular Outflow Tract Name Value Normal LVOT 2D LVOT Diameter 2.0 cm LVOT Doppler LVOT Peak Gradient 6 mmHg LVOT Mean Gradient 3 mmHg LVOT VTI 19 cm LVOT VTI/AV VTI Ratio 0.8 LVOT Stroke Volume 61 ml LVOT CO 5.3 l/min LVOT CI
[2021-08-01 05:04] LABS: Hematocrit 34.3 % (37.0-47.0); Hemoglobin 11.6 g/dL (12.0-15.0); Mean Corpuscular HGB Conc 33.8 g/dl (32-36); Mean Corpuscular Hemoglobin 33.2 pg (26-34); Mean Corpuscular Volume 98.3 fl (80-100); Mean Platelet Volume 9.7 fl (7.4-10.4); Platelet Count Result 267 k/mm3 (150-375); Red Blood Count 3.49 M/mm3 (4.2-5.4); Red Cell Distribution Width 12.5 % (11.5-14.5); White Blood Count 4.9 K/mm3 (4.5-10.0)
[2021-08-01 05:21] LABS: Magnesium 1.8 mg/dL (1.6-2.3)
[2021-08-01 05:26] LABS: Anion Gap 6 mmol/L (8-16); Blood Urea Nitrogen 6 mg/dL (7-17); Calcium 7.9 mg/dL (8.4-10.2); Carbon Dioxide 27 mmol/L (22-30); Chloride 99 mmol/L (98-107); Estimated CRCL calculation 114 ml/min; Estimated Glomerular Filt Rate > 60; Glucose 91 mg/dL (65-110); Potassium 3.9 mmol/L (3.4-5.0); Sodium 132 mmol/L (137-145)
[2021-08-01] MEDS: MORPHINE SULFATE (*CRX) 2 MG/ML INJ IV PUSH (06:22)
[2021-08-01] MEDS: ENOXAPARIN 80 MG/0.8 ML SYRINGE 70 MG SUB-Q (08:25)
[2021-08-01] MEDS: MULTIVITAMINS THERAPEUTIC TAB (*BKC) 1 TABLET PO (09:24)
--- NOTE | 2021-08-01 10:54 | P.PNIM_ITS ---
Progress Note: A&P Assessment and Plan (1) Acute pulmonary embolism: Qualifiers: Acute cor pulmonale presence: without acute cor pulmonale Pulmonary embolism type: unspecified Qualified Code(s): I26.99 - Other pulmonary embolism without acute cor pulmonale Code(s): I26.99 - Other pulmonary embolism without acute cor pulmonale Status: Acute Assessment and Plan: * Likely due to recent surgery * Troponin is mildly elevated but with no evidence of cardiovascular decompensa tion clinically or by CT * Echo showing EF 60-65% with Grade I diastolic dysfunction with mild pulm HTN. * Venous Doppler lower extremities showing left femoral and popliteal veins * Anticoagulated with enoxaparin currently * Will change to Eliquis today (2) Elevated troponin I level: Code(s): R77.8 - Other specified abnormalities of plasma proteins Status: Acute Assessment and Plan: * Troponin 0.073 and declining * EKG showing borderline T wave changes in the anterior/inferior leads * Due to pulmonary emboli * No acute coronary syndrome (3) Acute hypokalemia: Code(s): E87.6 - Hypokalemia Status: Acute Assessment and Plan: * Possibly due to poor intake perioperatively and postoperatively * Potassium supplemented * Repeat potassium normal * Follow (4) Acute respiratory failure with hypoxia: Code(s): J96.01 - Acute respiratory failure with hypoxia Status: Acute Assessment and Plan: * Due to pulmonary emboli * Nasal cannula oxygen as required * IS * Wean o2 as tolerated (5) Elevated blood pressure reading: Code(s): R03.0 - Elevated blood-pressure reading, without diagnosis of hypertension Status: Acute Assessment and Plan: * Possibly due to pain dyspnea and anxiety * No prior history of hypertension * Follow-up measurements are improved * Follow (6) Abnormal liver enzymes: Code(s): R74.8 - Abnormal levels of other serum enzymes Status: Acute Assessment and Plan: * This appears to be chronic * Suspect due to fatty liver as seen on CT scan 07/31 * Viral hepatitis panel negative Subjective Date/time seen: 08/01/21 10:54 Interval history: 60yo female with recent surgical procedure (07/17/21) here for SOB and CP and found to have PE. Assuming care. Chart reviewed. Hx of DVT in the past. Not on home O2. Slept poorly last night due to noise. No chest pain but does have pleuritic left flank pain with deep breaths. No n/v. No abd pain. Nonsmoker Exam Narrative: AF 98.3 126/85 88 20 98% 2L Gen - NARD lying semi-recumbent in bed Chest - bibasilar rhonchi. CV - RRR S1/S2; Tele showing no significant dyrhythmias. Abd - Soft, NT/ND, Positive BS Ext - No pitting pedal edema Psych - Nml mood and affect Skin - Warm and dry Objective Data Vital Signs Vital Signs: Vital Signs - 24 hr 07/31/21 11:00 07/31/21 12:27 07/31/21 13:17 Temperature Pulse Rate 109 H 119 H 120 H Respiratory Rate 14 20 30 H Blood Pressure 109/77 119/86 91/71 L Pulse Oximetry 94 94 98 07/31/21 14:16 07/31/21 14:51 07/31/21 16:00 Temperature Pulse Rate 117 H 109 H 113 H Respiratory Rate 25 H 20 Blood Pressure 96/66 L 112/78 Pulse Oximetry 97 97 97 07/31/21 18:00 07/31/21 20:00 07/31/21
--- NOTE | 2021-08-01 10:54 | PM.IMPN ---
Progress Note: A&P Assessment and Plan (1) Acute pulmonary embolism: Qualifiers: Acute cor pulmonale presence: without acute cor pulmonale Pulmonary embolism type: unspecified Qualified Code(s): I26.99 - Other pulmonary embolism without acute cor pulmonale Code(s): I26.99 - Other pulmonary embolism without acute cor pulmonale Status: Acute Assessment and Plan: Likely due to recent surgery Troponin is mildly elevated but with no evidence of cardiovascular decompensation clinically or by CT Echo showing EF 60-65% with Grade I diastolic dysfunction with mild pulm HTN. Venous Doppler lower extremities showing left femoral and popliteal veins Anticoagulated with enoxaparin currently Will change to Eliquis today (2) Elevated troponin I level: Code(s): R77.8 - Other specified abnormalities of plasma proteins Status: Acute Assessment and Plan: Troponin 0.073 and declining EKG showing borderline T wave changes in the anterior/inferior leads Due to pulmonary emboli No acute coronary syndrome (3) Acute hypokalemia: Code(s): E87.6 - Hypokalemia Status: Acute Assessment and Plan: Possibly due to poor intake perioperatively and postoperatively Potassium supplemented Repeat potassium normal Follow (4) Acute respiratory failure with hypoxia: Code(s): J96.01 - Acute respiratory failure with hypoxia Status: Acute Assessment and Plan: Due to pulmonary emboli Nasal cannula oxygen as required IS Wean o2 as tolerated (5) Elevated blood pressure reading: Code(s): R03.0 - Elevated blood-pressure reading, without diagnosis of hypertension Status: Acute Assessment and Plan: Possibly due to pain dyspnea and anxiety No prior history of hypertension Follow-up measurements are improved Follow (6) Abnormal liver enzymes: Code(s): R74.8 - Abnormal levels of other serum enzymes Status: Acute Assessment and Plan: This appears to be chronic Suspect due to fatty liver as seen on CT scan 07/31 Viral hepatitis panel negative Subjective Date/time seen: 08/01/21 10:54 Interval history: 60yo female with recent surgical procedure (07/17/21) here for SOB and CP and found to have PE. Assuming care. Chart reviewed. Hx of DVT in the past. Not on home O2. Slept poorly last night due to noise. No chest pain but does have pleuritic left flank pain with deep breaths. No n/v. No abd pain. Nonsmoker Exam Narrative: AF 98.3 126/85 88 20 98% 2L Gen - NARD lying semi-recumbent in bed Chest - bibasilar rhonchi. CV - RRR S1/S2; Tele showing no significant dyrhythmias. Abd - Soft, NT/ND, Positive BS Ext - No pitting pedal edema Psych - Nml mood and affect Skin - Warm and dry Objective Data Vital Signs Vital Signs: Vital Signs - 24 hr 07/31/21 11:00 07/31/21 12:27 07/31/21 13:17 Temperature Pulse Rate 109 H 119 H 120 H Respiratory Rate 14 20 30 H Blood Pressure 109/77 119/86 91/71 L Pulse Oximetry 94 94 98 07/31/21 14:16 07/31/21 14:51 07/31/21 16:00 Temperature Pulse Rate 117 H 109 H 113 H Respiratory Rate 25 H 20 Blood Pressure 96/66 L 112/78 Pulse Oximetry 97 97 97 07/31/21 18:00 07/31/21 20:00 07/31/21 22:00 Temperature 97.3 F L Pulse Rate 126 H 104 H 102 H Respiratory Rate 20 Blood Pressure 136/94 H Pulse Oximetry 98 08/01/21 00:00 08/01/21 02:00 08/01/21 04:00 Temperature 96.7 F L 97.9 F Pulse Rate 100 103 H 96 Respiratory Rate 20 12 Blood Pressure 145/93 H 148/95 H Pulse Oximetry 98 96 08/01/21 06:00 08/01/21 08:00 08/01/21 08:51 Temperature 98.3 F Pulse Rate 117 H 92 88 Respiratory Rate 20 Blood Pressure 126/85 Pulse Oximetry 98 98 Intake/Output Intake/Output: Intake & Output 07/29/21 07/30/21 07/31/21 08/01/21 23:59 23:59 23:59 23:59 Intake Total 860 440 Output Total 300 Balance 860 140
[2021-08-01] MEDS: HYDROcodone/acetaminophen (*CRX) 5-325 MG TABLET 1 TAB PO ×2 (11:40→18:22)
[2021-08-01] MEDS: APIXABAN 5 MG TABLET 10 MG PO (21:27)
[2021-08-02] VITALS (9 sets, daily range): BP systolic 109–139; BP diastolic 70–87; PULSE 92–109; RESP 16–20; TEMP 36.3–36.8; O2SAT 92–100
[2021-08-02 04:54] LABS: Basophils Percent Auto 0.4 % (0.2-1.2); Eosinophils Absolute Auto 0.1 K/mm3 (0-0.3); Hematocrit 32.9 % (37.0-47.0); Hemoglobin 11.2 g/dL (12.0-15.0); Immature Granulocyte Absolute 0.02 K/mm3 (0.00-0.031); Immature Granulocyte Percent A 0.4 % (0-0.5); Lymphocytes Percent Auto 25.7 % (18.3-44.2); Mean Corpuscular Hemoglobin 33.3 pg (26-34); Mean Corpuscular Volume 97.9 fl (80-100); Mean Platelet Volume 9.3 fl (7.4-10.4); Monocytes Absolute Auto 0.6 K/mm3 (0.1-0.6); Monocytes Percent Auto 11.1 % (2.6-8.5); Neutrophils Absolute Auto 3.1 K/mm3 (1.3-6.7); Neutrophils Percent Auto 60.4 % (45.5-73.1); Platelet Count Result 301 k/mm3 (150-375); Red Blood Count 3.36 M/mm3 (4.2-5.4); Red Cell Distribution Width 12.3 % (11.5-14.5); White Blood Count 5.1 K/mm3 (4.5-10.0)
[2021-08-02 05:04] LABS: Anion Gap 7 mmol/L (8-16); Blood Urea Nitrogen 6 mg/dL (7-17); Calcium 7.8 mg/dL (8.4-10.2); Carbon Dioxide 27 mmol/L (22-30); Chloride 98 mmol/L (98-107); Estimated CRCL calculation 94 ml/min; Estimated Glomerular Filt Rate > 60; Glucose 98 mg/dL (65-110); Magnesium 1.8 mg/dL (1.6-2.3); Potassium 3.6 mmol/L (3.4-5.0); Sodium 132 mmol/L (137-145)
[2021-08-02] MEDS: MULTIVITAMINS THERAPEUTIC TAB (*BKC) 1 TABLET PO (09:24)
[2021-08-02] MEDS: APIXABAN 5 MG TABLET 10 MG PO (09:24)
[2021-08-02 12:54] LABS: Alanine Aminotransferase 177 U/L (4-35); Albumin Level 2.5 g/dL (3.5-5.1); Alkaline Phosphatase 314 U/L (38-126); Aspartate Amino Transferase 150 U/L (14-36); Bilirubin,Total 0.7 mg/dL (0.2-1.3)
[2021-08-02] MEDS: HYDROcodone/acetaminophen (*CRX) 5-325 MG TABLET 1 TAB PO (13:20)
--- NOTE | 2021-08-02 14:47 | P.DS_ITS ---
DS: Admitting Diagnosis Discharge Date 08/02/21 Admitting Diagnosis Dyspnea, chest pain DS: Discharge Diagnosis Discharge Diagnosis (1) Acute pulmonary embolism: Qualifiers: Acute cor pulmonale presence: without acute cor pulmonale Pulmonary embolism type: unspecified Qualified Code(s): I26.99 - Other pulmonary embolism without acute cor pulmonale Code(s): I26.99 - Other pulmonary embolism without acute cor pulmonale Status: Acute Assessment and Plan: * CTA chest showing bilateral PE involving the main pulmonary arteries, bilateral segmental and subsegmental pulmonary arteries with moderate-large thrombus burden. * Likely due to recent surgery * Troponin is mildly elevated but with no evidence of cardiovascular decompensation clinically or by CT * Echo showing EF 60-65% with Grade I diastolic dysfunction with mild pulm HTN. * Venous Doppler lower extremities showing left femoral and popliteal veins * Anticoagulated with enoxaparin initially then changed to Eliquis (2) Elevated troponin I level: Code(s): R77.8 - Other specified abnormalities of plasma proteins Status: Acute Assessment and Plan: * Troponin 0.073 and declining * EKG showing borderline T wave changes in the anterior/inferior leads * Due to pulmonary emboli * No acute coronary syndrome (3) Acute hypokalemia: Code(s): E87.6 - Hypokalemia Status: Acute Assessment and Plan: * Possibly due to poor intake * Potassium supplemented * Repeat potassium normal (4) Acute respiratory failure with hypoxia: Code(s): J96.01 - Acute respiratory failure with hypoxia Status: Acute Assessment and Plan: * Due to pulmonary emboli * She required O2 but able to be weaned to room air (5) Elevated blood pressure reading: Code(s): R03.0 - Elevated blood-pressure reading, without diagnosis of hypertension Status: Acute Assessment and Plan: * Possibly due to pain dyspnea and anxiety * No prior history of hypertension * Follow-up measurements are improved (6) Abnormal liver enzymes: Code(s): R74.8 - Abnormal levels of other serum enzymes Status: Acute Assessment and Plan: * This appears to be chronic * Suspect due to fatty liver as seen on CT scan 07/31 * Viral hepatitis panel negative * Continue to follow as outpatient DS: Summary Hospital Course Reason for hospitalization: 60yo female with recent surgical procedure (07/17/21) here for SOB and CP and found to have PE. Please see H&P for details. Hospital Course: Please see above for details of hospital course Status at Discharge Cognitive/behavioral status at discharge: Stable Time Spent with Patient Time attestation: Total time spent providing and/or coordinating discharge services: 35 minutes Time spent: Greater than 30 minutes Exam Narrative: AF 97.9 120/87 103 16 98% ra Gen - NARD sittiing up in the chair Chest - few basilar rhonchi, nml RR CV - RRR S1/S2; Tele showing a very brief run of atrial tachycardia (5 beats) Abd - Soft, NT/ND, Positive BS Ext - Nonpitting pedal edema Psych - Nml mood and affect Skin - Warm and dry DS: Data Data Completed and Pending Labs on day of discharge: Labs from last 24 hours 08/02/21 08/02/21 08/02/21 04:15 04:15 04:15 WBC 5.1 RBC 3.36 L Hgb 11.2 L
--- NOTE | 2021-08-02 14:47 | PM.DS ---
DS: Admitting Diagnosis Discharge Date 08/02/21 Admitting Diagnosis Dyspnea, chest pain DS: Discharge Diagnosis Discharge Diagnosis (1) Acute pulmonary embolism: Qualifiers: Acute cor pulmonale presence: without acute cor pulmonale Pulmonary embolism type: unspecified Qualified Code(s): I26.99 - Other pulmonary embolism without acute cor pulmonale Code(s): I26.99 - Other pulmonary embolism without acute cor pulmonale Status: Acute Assessment and Plan: CTA chest showing bilateral PE involving the main pulmonary arteries, bilateral segmental and subsegmental pulmonary arteries with moderate-large thrombus burden. Likely due to recent surgery Troponin is mildly elevated but with no evidence of cardiovascular decompensation clinically or by CT Echo showing EF 60-65% with Grade I diastolic dysfunction with mild pulm HTN. Venous Doppler lower extremities showing left femoral and popliteal veins Anticoagulated with enoxaparin initially then changed to Eliquis (2) Elevated troponin I level: Code(s): R77.8 - Other specified abnormalities of plasma proteins Status: Acute Assessment and Plan: Troponin 0.073 and declining EKG showing borderline T wave changes in the anterior/inferior leads Due to pulmonary emboli No acute coronary syndrome (3) Acute hypokalemia: Code(s): E87.6 - Hypokalemia Status: Acute Assessment and Plan: Possibly due to poor intake Potassium supplemented Repeat potassium normal (4) Acute respiratory failure with hypoxia: Code(s): J96.01 - Acute respiratory failure with hypoxia Status: Acute Assessment and Plan: Due to pulmonary emboli She required O2 but able to be weaned to room air (5) Elevated blood pressure reading: Code(s): R03.0 - Elevated blood-pressure reading, without diagnosis of hypertension Status: Acute Assessment and Plan: Possibly due to pain dyspnea and anxiety No prior history of hypertension Follow-up measurements are improved (6) Abnormal liver enzymes: Code(s): R74.8 - Abnormal levels of other serum enzymes Status: Acute Assessment and Plan: This appears to be chronic Suspect due to fatty liver as seen on CT scan 07/31 Viral hepatitis panel negative Continue to follow as outpatient DS: Summary Hospital Course Reason for hospitalization: 60yo female with recent surgical procedure (07/17/21) here for SOB and CP and found to have PE. Please see H&P for details. Hospital Course: Please see above for details of hospital course Status at Discharge Cognitive/behavioral status at discharge: Stable Time Spent with Patient Time attestation: Total time spent providing and/or coordinating discharge services: 35 minutes Time spent: Greater than 30 minutes Exam Narrative: AF 97.9 120/87 103 16 98% ra Gen - NARD sittiing up in the chair Chest - few basilar rhonchi, nml RR CV - RRR S1/S2; Tele showing a very brief run of atrial tachycardia (5 beats) Abd - Soft, NT/ND, Positive BS Ext - Nonpitting pedal edema Psych - Nml mood and affect Skin - Warm and dry DS: Data Data Completed and Pending Labs on day of discharge: Labs from last 24 hours 08/02/21 08/02/21 08/02/21 04:15 04:15 04:15 WBC 5.1 RBC 3.36 L Hgb 11.2 L Hct 32.9 L MCV 97.9 MCH 33.3 MCHC 34.0 RDW 12.3 Plt Count 301 MPV 9.3 Immature Gran % (Auto) 0.4 Neut % (Auto) 60.4 Lymph % (Auto) 25.7 [place] % (Auto) 11.1 H Eos % (Auto) 2.0 Baso % (Auto) 0.4 Lymph # (Auto) 1.30 [place] # (Auto) 0.6 Eos # (Auto) 0.1 Baso # (Auto) 0.0 Abs Immat Gran (auto) 0.02 Absolute Neuts (auto) 3.1 Absolute Nucleated RBC 0.0 Nucleated RBC % 0.0 Sodium 132 L Potassium 3.6 Chloride 98 Carbon Dioxide 27 Anion Gap 7 L BUN 6 L Creatinine 0.50 L Estim Creat Clear
== END 2021-08-02 15:30 | disposition home or self-care (01) | DRG 176 ==
LOC: ANHED 08:15 → ANHIMU 08-01 12:25
PROVIDERS: Emergency Medicine; Admitting Provider Internal Medicine; Emergency Provider Emergency Medicine; PCP Family Medicine; Visit Provider Internal Medicine
DX: I26.99 Other pulmonary embolism without acute cor pulmonale (principal); I82.412 Acute embolism and thrombosis of left femoral vein; I82.432 Acute embolism and thrombosis of left popliteal vein; I27.20 Pulmonary hypertension, unspecified; Z20.822 Contact with and (suspected) exposure to COVID-19; Z86.16 Personal history of COVID-19; R77.8 Other specified abnormalities of plasma proteins; E87.6 Hypokalemia; R03.0 Elevated blood-pressure reading, without diagnosis of hypertension; R74.8 Abnormal levels of other serum enzymes; Z98.890 Other specified postprocedural states; Z98.84 Bariatric surgery status; Z86.718 Personal history of other venous thrombosis and embolism
CPT/HCPCS: 36415; 71045; 71275; 74177; 80048; 80053; 80074; 80076; 83605; 83690; 83735; 83880; 84484; 85025; 85027; 85610; 85730; 93005; 93306; 93970; 96365; 96366; 96372; 96375; 96376; 99285; A9270; C9803; G0378; J1170; J1650; J2270; J3480; J7040; J7120; Q9967; U0003; U0005

== ENCOUNTER → 2022-04-15 09:52 | Outpatient (CLI) | payer OTHER, SELFPAY ==
--- NOTE | ~2022-04-15 | MM_ITS ---
EXAMINATION: MM screening [facility] BI w lolly HISTORY: Screening mammogram TECHNIQUE: Craniocaudal and mediolateral oblique 3-D tomosynthesis images were obtained and synthetic 2-D images were generated. CAD analysis was submitted and interpreted. COMPARISON: 01/31/2021, 02/27/2019, 02/27/2018 BREAST PARENCHYMAL COMPOSITION: There are scattered areas of fibroglandular density. FINDINGS: RIGHT BREAST: There are masses in the middle/posterior third of the upper-outer quadrant of the breas t, one of which appears to demonstrate interval enlargement. LEFT BREAST: There is no suspicious mass, calcification, or architectural distortion to suggest malig vanessa. There has been no significant interval change. IMPRESSION: 1. Possible enlarging right breast mass. 2. Additional mammographic views and possible breast ultrasound are recommended. BI-RADS Category 0: Incomplete: Needs additional imaging evaluation. Reviewed, dictated and finalized at location A. IMPRESSION: 1. Possible enlarging right breast mass. 2. Additional mammographic views and possible breast ultrasound are recommended . BI-RADS Category 0: Incomplete: Needs additional imaging evaluation.
== END ==
PROVIDERS: PCP Family Medicine; Visit Provider Advanced Practice Midwife
DX: Z12.31 Encounter for screening mammogram for malignant neoplasm of breast (principal); R92.8 Other abnormal and inconclusive findings on diagnostic imaging of breast
CPT/HCPCS: 77063; 77067

== ENCOUNTER → 2022-05-08 14:26 | Outpatient (CLI) | payer OTHER, SELFPAY ==
--- NOTE | ~2022-05-08 | MMUS_ITS ---
EXAMINATION: MM diagnostic gomez RT w lolly, US breast RT limited HISTORY: Right breast mass TECHNIQUE: Additional 3-D tomosynthesis images of the right breast were performed and synthetic 2-D i mages were generated. CAD analysis was submitted and interpreted. High resolution limited right breas t ultrasound was performed. COMPARISON: 04/15/2022, 01/31/2021, 02/27/2019, 02/27/2018 FINDINGS: MAMMOGRAPHIC FINDINGS: There is a 12 mm oval, circumscribed, low density mass in the middle third of the upper-outer quadran t of the breast at the 10:00 location 7 cm from the nipple. There is an adjacent 9 mm mass with simil ar mammographic features located just laterally. ULTRASOUND: There are adjacent cysts at the 10:00 location 6 cm from the nipple measuring 11 mm and 10 mm corresp onding to the mammographic findings. A smaller adjacent 4 mm cyst is noted. There is a [address] near the nipple. IMPRESSION: 1. No mammographic or sonographic evidence of malignancy. 2. Recommend routine screening mammography in one year. BI-RADS Category 2: Benign finding(s). Reviewed, dictated and finalized at location A. IMPRESSION: 1. No mammographic or sonographic evidence of malignancy. 2. Recommend routine screening mammography in one year. BI-RADS Category 2: Benign finding(s).
== END ==
PROVIDERS: PCP Family Medicine; Visit Provider Advanced Practice Midwife
DX: R92.8 Other abnormal and inconclusive findings on diagnostic imaging of breast (principal)
CPT/HCPCS: 76642; 77061; 77065; G0279

== ENCOUNTER 2022-05-30 16:42 | Inpatient (IN) | payer OTHER, SELFPAY ==
--- NOTE | ~2022-05-30 | XR_ITS ---
EXAMINATION: XR abdomen/kub 1V DATE: 06/02/2022 10:45 INDICATION: Small bowel obstruction. TECHNIQUE: A supine view of the abdomen was obtained. COMPARISON: CT abdomen and pelvis 05/30/2022 FINDINGS: There are no dilated loops of bowel. Surgical clips in the right upper quadrant are likely from cholecystectomy. IMPRESSION: 1. Nonobstructive bowel gas pattern. Reviewed, dictated and finalized at location A. [facility] [place]
--- NOTE | ~2022-05-30 | XR_ITS ---
XR sm bowel follow through WS DATE: 05/31/2022 14:41 INDICATION: Small bowel obstruction TECHNIQUE: Serial images of the abdomen were obtained after administration of water soluble contrast material via NG tube. . COMPARISON: 05/30/2022 CT abdomen pelvis FINDINGS: There is an NG tube in body of stomach. Surgical clips, retrocardiac, consistent with cholecystectomy. There is dilatation of the small bowel into the right lower quadrant where there is some fecal lysed content of the distal small bowel. At 3 hours and 45 minutes there is persistent small bowel dilatati on and no progression of contrast material into the colon. IMPRESSION: High-grade distal small bowel obstruction Dr. Gilliam telephoned Dr. Ronquillo's office, but he was in surgery. Dr. Gilliam reported the findings to his medical donation professional. Azra, including the finding of a very high-grade obstruction of the distal small yasir l confirmed by CT as well as a small bowel series and the concern for the presence of a closed-loop o bstruction is suggested by CT examination and the possible development of ischemic or necrotic small bowel as result. Strong consideration was recommended by Dr. Gilliam for surgical intervention. Reviewed, dictated and finalized at Location A. Reviewed, dictated and finalized at location A. [employer] IMPRESSION: High-grade distal small bowel obstruction Dr. Gilliam telephoned Dr. Ronquillo's office, but he was in surgery. Dr. Gilliam reporte d the findings to his medical donation professional. Azra, including the finding of a very hig h-grade obstruction of the distal small bowel confirmed by CT as well as a smal l bowel series and the concern for the presence of a closed-loop obstruction is suggested by CT examination and the possible development of ischemic or necrot ic small bowel as result. Strong consideration was recommended by Dr. Gililam for surgical intervention.
--- NOTE | ~2022-05-30 | XR_ITS ---
XR abdomen/kub 1V DATE: 06/01/2022 10:28 INDICATION: Small bowel obstruction TECHNIQUE: Portable supine AP view of the abdomen COMPARISON: 05/31/2022 small bowel follow-through FINDINGS: There is radiopaque contrast material in the distal normal caliber small bowel and througho ut the colon and rectum. Persistent proximal and mid small bowel dilatation. NG tube in stomach. Surgical clips, right upper quadrant, consistent with cholecystectomy. IMPRESSION: Persistent proximal and mid small bowel dilatation; the small bowel series contrast mater ial is now in the distal normal caliber small bowel and throughout the colon and rectum Reviewed, dictated and finalized at Location A. Reviewed, dictated and finalized at location B. MAKER IMPRESSION: Persistent proximal and mid small bowel dilatation; the small bowel series contrast material is now in the distal normal caliber small bowel and t hroughout the colon and rectum
--- NOTE | ~2022-05-30 | US_ITS ---
EXAMINATION: US right upper quadrant DATE: 05/31/2022 14:59 INDICATION: Elevated liver function tests. TECHNIQUE: Multiple grayscale and Doppler ultrasound images of the abdomen were obtained. COMPARISON: CT dated 05/30/2022 FINDINGS: Visualized body of the pancreas is normal. There are multiple fluid-filled loops of small bowel in th e visualized abdomen anterior to the pancreas and caudal to the liver small amount of perihepatic asc ites. Status post cholecystectomy. The common bile duct was unable to be visualized but was of normal caliber on the CT from one day prior. IMPRESSION: 1. Multiple loops of dilated fluid-filled loops of bowel consistent with small bowel obstruction is e vident on prior CT. 2. Small amount of perihepatic ascites. 3. No intrahepatic biliary ductal dilation. Common bile duct unable to visualized but was normal in c aliber on CT from one day prior. Reviewed, dictated and finalized at location B. [facility]YCHIATRIC NURSE IMPRESSION: 1. Multiple loops of dilated fluid-filled loops of bowel consistent with small bowel obstruction is evident on prior CT. 2. Small amount of perihepatic ascites. 3. No intrahepatic biliary ductal dilation. Common bile duct unable to visualiz ed but was normal in caliber on CT from one day prior.
--- NOTE | ~2022-05-30 | XR_ITS ---
EXAMINATION: XR abdomen NG/feed tube insert DATE: 05/30/2022 23:30 INDICATION: Nasogastric tube placement. TECHNIQUE: An upright view of the abdomen was obtained. COMPARISON: CT abdomen and pelvis 05/30/2022 FINDINGS: The lower abdomen is excluded. The nasogastric tube tip is in the stomach. Surgical clips i n the right upper quadrant are likely from cholecystectomy. There is mild atelectasis at left lung ba se. 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 IMPRESSION: 1. Nasogastric tube tip in the stomach. Reviewed, dictated and finalized at location A. STE[employer]
--- NOTE | ~2022-05-30 | CT_ITS ---
EXAMINATION: CT abdomen pelvis w con INDICATION: Generalized abdominal pain TECHNIQUE: Computed tomographic images of the abdomen and pelvis were obtained after the administrati on of 100 cc of Omnipaque 350 intravenous contrast. The dose-length product (DLP) was 263.95 mGy-cm. Automated exposure control and iterative reconstruction technique were employed. COMPARISON: 07/31/2021 FINDINGS: Minimal dependent atelectasis is present in the lung bases. The heart size is normal. There is a moderate-sized hiatal hernia. Healed left-sided rib fractures are noted. The gallbladder is rob gically absent. There is mild enlargement of the common bile duct and central intrahepatic ducts whic h is likely due to post cholecystectomy state. The liver is diffusely low in attenuation when compare d with the spleen, consistent with hepatic steatosis. Punctate calcifications in an otherwise normal spleen likely represent healed granulomatous disease. The pancreas and adrenal glands are normal. The kidneys are unremarkable. No pathologically enlarged abdominal or pelvic lymph nodes are identified. There is no free intraperitoneal gas. There are mildly dilated loops of small bowel in the pelvis wi th two transition points identified (coronal reconstructed images 46 and 47). There is edema of the s mall bowel mesentery in the pelvis. The adjacent small bowel loops appear to be hypoenhancing as do t he associated mesenteric vessels. There is moderate lumbar spondylosis. IMPRESSION: 1. Findings concerning for closed loop small bowel obstruction. Apparent hypoenhancement of pelvic sm all bowel loops adjacent mesenteric edema which could be due to bowel wall edema and/or bowel ischemi a. Surgical evaluation is recommended. Reviewed, dictated and finalized at location [facility]. [employer] IMPRESSION: 1. Findings concerning for closed loop small bowel obstruction. Apparent hypoen hancement of pelvic small bowel loops adjacent mesenteric edema which could be due to bowel wall edema and/or bowel ischemia. Surgical evaluation is recommend ed.
[2022-05-30 17:05] VITALS: BP 128/67; PULSE 63; RESP 14; TEMP 36.4; O2SAT 100
[2022-05-30 17:21] LABS: Basophils Percent Auto 0.7 % (0.2-1.2); Eosinophils Percent Auto 0.4 % (0-4.4); Hematocrit 39.9 % (37.0-47.0); Hemoglobin 13.5 g/dL (12.0-15.0); Immature Granulocyte Absolute 0.01 K/mm3 (0.00-0.031); Immature Granulocyte Percent A 0.2 % (0-0.5); Lymphocytes Absolute Auto 1.08 K/mm3 (0.9-3.2); Mean Corpuscular HGB Conc 33.8 g/dl (32-36); Mean Corpuscular Hemoglobin 34.6 pg (26-34); Mean Corpuscular Volume 102.3 fl (80-100); Mean Platelet Volume 9.5 fl (7.4-10.4); Monocytes Absolute Auto 0.2 K/mm3 (0.1-0.6); Monocytes Percent Auto 4.9 % (2.6-8.5); Neutrophils Absolute Auto 3.1 K/mm3 (1.3-6.7); Neutrophils Percent Auto 69.8 % (45.5-73.1); Platelet Count Result 247 k/mm3 (150-375); White Blood Count 4.5 K/mm3 (4.5-10.0)
[2022-05-30 17:31] LABS: Alanine Aminotransferase 99 U/L (6-35); Albumin Level 4.1 g/dL (3.5-5.1); Alkaline Phosphatase 241 U/L (38-126); Anion Gap 10 mmol/L (8-16); Aspartate Amino Transferase 98 U/L (14-36); Bilirubin,Total 0.9 mg/dL (0.2-1.3); Blood Urea Nitrogen 8 mg/dL (7-17); Calcium 8.8 mg/dL (8.4-10.2); Carbon Dioxide 23 mmol/L (22-30); Chloride 104 mmol/L (98-107); Estimated CRCL calculation 74 ml/min; Estimated Glomerular Filt Rate > 60; Glucose 168 mg/dL (65-110); Lipase 45 U/L (23-300); Potassium 3.7 mmol/L (3.4-5.0); Sodium 137 mmol/L (137-145)
--- NOTE | 2022-05-30 20:10 | ED.ABDPAIN ---
HPI - Abdominal Pain General Chief Complaint: Abdominal Pain Stated Complaint: abd pain Time Seen by Provider: 05/30/22 19:57 History of Present Illness HPI narrative: 61-year-old female history of gastric bypass in 1992, laparotomy, hernia repair with fistulas in 2018, and a partial colectomy in 2020 at [facility], GERD presents to the emergency room with mid abdominal pain since noon today. Pain is associated with frequent episodes of nonbilious nonbloody vomiting. Denies any diarrhea. States that the pain is similar to that from when she had a small bowel obstruction. Pain does not radiate. Denies fevers Related Data Home Medications Medication Instructions Recorded Confirmed Adult One Daily Multivitamin 1 tablet PO DAILY 06/15/21 10/26/21 calcium-vitamin D3-vitamin K 500 1 tablet PO DAILY 10/26/21 10/26/21 mg-100 unit-40 mcg chewable tablet Allergies Allergy/AdvReac Type Severity Reaction Status Date / Time poison keo extract Allergy Unknown RASH Verified 11/02/21 14:53 vancomycin Allergy Unknown Unknown Verified 11/02/21 14:53 adhesive tape AdvReac Unknown RASH,ITCHIN Verified 11/02/21 14:53 G codeine AdvReac Unknown NAUSEA Verified 11/02/21 14:53 Review of Systems Review of Systems: CONSTITUTIONAL: Denies fever, chills, or sweats. EYES: Denies visual changes, redness, or discharge. ENT: Denies rhinorrhea, congestion, sore throat, or otalgia. CARDIOVASCULAR: Denies chest pain, palpitations, or edema. RESPIRATORY: Denies cough or dyspnea. GASTROINTESTINAL: Reports abdominal pain, nausea, vomiting GENITOURINARY: Denies dysuria or hematuria. SKIN: Denies rash or itching. MUSCULOSKELETAL: Denies back pain, joint pain, or myalgia. NEUROLOGIC: Denies headache, numbness, dizziness, or weakness. PSYCHIATRIC: Denies anxiety or depression. [facility], LAT[facility] Past Medical History Medical History Acne vulgaris Acute pulmonary embolism Acute respiratory failure with hypoxia Chronic low back pain without sciatica Elevated troponin I level GERD without esophagitis History of COVID-19 06/2020 Pulmonary embolism Vitamin D deficiency Surgical History Surgical History H/O hernia repair (~06/16/21) exploratory laparotomy for internal hernia H/O varicose vein stripping 2009 History of bilateral knee replacement 2014 History of 1979 and 1987 History of cholecystectomy 1987 History of gastric bypass 1992 History of laparotomy 12/2018 - 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 History of umbilical hernia repair 1993 Family History Family History Mother Diabetes mellitus Hypertension Father Carcinoma of colon Grandparent Heart attack Social History Social History Social History: She works in a [employer]. . Does not have a living will. Has not designated a healthcare power of insurance attorney. Smoking status: Never smoker Second hand tobacco smoke exposure: Yes (Previous smoked in home for 30 years.) Alcohol intake: never Substance use: never Substance use type: does not use Additional living arrangements comments: Boyfriend Additional occupation/education comments: Call center Gender identity (if verbalized by the patient): Female Sexual Orientation (if Verbalized by the Patient): Straight or Heterosexual Spiritual care concerns: No Exam Narrative: GENERAL: Well-appearing, well-nourished, no physical limitations, and in no acute distress. HEAD: Normocephalic, atraumatic. EYES: Conjunctivae normal, PERRLA and EOMI. CHEST: Clear to auscultation. No respiratory distress. No wheezes rales or rhonchi. HEART: Regular rate and rhythm. No murmur heard. Normal peripheral pulses. ABDOMEN: Soft, periumbilical
[2022-05-30] MEDS: MORPHINE SULFATE (*CRX) 2 MG/ML INJ IV PUSH (21:13)
[2022-05-30] MEDS: ONDANSETRON INJ 4 MG/2 ML VIAL IV PUSH (21:13)
[2022-05-30] MEDS: SODIUM CHLORIDE 0.9% IV 1,000 ML 999 ML IV CONT (21:14)
[2022-05-30 22:32] LABS: Appearance Urine Clear (Clear); Bilirubin Urine Negative (Negative); Blood Urine Negative (Negative); Color Urine Yellow (Yellow); Glucose Urine UA Negative (Negative); Ketones Urine 3+ mg/dL (Negative); Leukocyte Esterase Ur Negative LEU/UL (Negative); Nitrate Urine Negative (Negative); Protein Urine Negative (Negative); Urobilinogen Urine 0.2 mg/dL (<2.0)
[2022-05-30 22:33] LABS: RBC Urine 0-2 /hpf (0-2); WBC Urine 0-3 /hpf
[2022-05-30 22:34] LABS: Add Urine Microscopic? YES
[2022-05-30] MEDS: fentaNYL CITRATE INJ (*CRX) 100 MCG/2 ML VIAL 50 MCG IV PUSH (22:52)
[2022-05-30 22:56] LABS: Lactic Acid Reflex 1.6 mmol/L (0.7-2.0)
--- NOTE | 2022-05-30 22:58 | PM.IMHP ---
H&P: HPI History of Present Illness Date/Time: 05/30/22 22:58 Chief Complaint: 61-year-old female history of gastric bypass in 1992, laparotomy, hernia repair with fistulas in 2018, and a partial colectomy in 2020 at [facility], GERD presents to the emergency room with mid abdominal pain started today dull in nature worsening gradually aggravated with food associated with constipation and abdominal distension CT scan of the abdomen was done showed concern for small-bowel obstruction and able to transfer patient to [facility] due to no availability of bed surgery was consulted nasogastric tube to be placed patient will be admitted for small-bowel obstruction with IV hydration and pain control Also patient has abnormal LFT CT scan was negative for gallbladder or bile duct disease check acute hepatitis panel Patient has history of PE last July she had oral anticoagulation for 6 months currently she is off oral anticoagulation Review of Systems Review of Systems: Twelve system review was done was negative except above PMFSH Past Medical History Medical History (Updated 05/30/22 @ 23:02 by Lakeisha Heck MD) Acne vulgaris Acute pulmonary embolism Acute respiratory failure with hypoxia Chronic low back pain without sciatica Elevated troponin I level GERD without esophagitis History of COVID-19 06/2020 Pulmonary embolism Vitamin D deficiency Surgical History Surgical History H/O hernia repair (~06/16/21) exploratory laparotomy for internal hernia H/O varicose vein stripping 2009 History of bilateral knee replacement 2014 History of 1979 and 1987 History of cholecystectomy 1986 History of gastric bypass 1992 History of laparotomy 12/2018 - 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 History of umbilical hernia repair 1993 Family History Family History Mother Diabetes mellitus Hypertension Father Carcinoma of colon Grandparent Heart attack Social History Social History Social History: She works in a [employer]. . Does not have a living will. Has not designated a healthcare power of estate attorney. Smoking status: Never smoker Second hand tobacco smoke exposure: Yes (Previous smoked in home for 30 years.) Alcohol intake: never Substance use: never Substance use type: does not use Additional living arrangements comments: Boyfriend Additional occupation/education comments: Call center Gender identity (if verbalized by the patient): Female Sexual Orientation (if Verbalized by the Patient): Straight or Heterosexual Spiritual care concerns: No Meds Home Medications and Allergies Home Medications Medication Instructions Recorded Confirmed Type Adult One Daily Multivitamin 1 tablet PO DAILY 06/15/21 10/26/21 History apixaban 5 mg tablet (Eliquis) 5 mg PO Q12HR #180 tabs 08/26/21 10/26/21 Rx calcium-vitamin D3-vitamin K 500 1 tablet PO DAILY 10/26/21 10/26/21 History mg-100 unit-40 mcg chewable tablet Allergies Allergy/AdvReac Type Severity Reaction Status Date / Time poison koe extract Allergy Unknown RASH Verified 11/02/21 14:53 vancomycin Allergy Unknown Unknown Verified 11/02/21 14:53 adhesive tape AdvReac Unknown RASH,ITCHIN Verified 11/02/21 14:53 G codeine AdvReac Unknown NAUSEA Verified 11/02/21 14:53 Vital Signs Vital Signs - 24 hr 05/30/22 17:05 Temperature 97.6 F Pulse Rate 63 Respiratory Rate 14 Blood Pressure 128/67 Pulse Oximetry 100 Oxygen Delivery Room Air Exam Narrative: GENERAL: Well appearing, well-nourished, non-toxic, in no acute distress. HEAD: Normocephalic, atraumatic. NECK: Supple. No adenopathy, no masses. RESPIRATORY: Airway patent, respirations nonlabored. Clear to auscultation bilateral
[2022-05-30 23:22] LABS: Influenza A QL RT-PCR Negative (Negative); Influenza B QL RT-PCR Negative (Negative); SARS-CoV-2 RNA PCR Negative
[2022-05-30 23:50] VITALS: BP 138/77; PULSE 98; RESP 18; O2SAT 98
[2022-05-31] VITALS (12 sets, daily range): BP systolic 130–172; BP diastolic 72–117; PULSE 78–99; RESP 14–18; TEMP 36.5–37.2; O2SAT 95–98; BMI 26.2
[2022-05-31 02:44] LABS: Basophils Percent Auto 0.2 % (0.2-1.2); Hematocrit 37.5 % (37.0-47.0); Hemoglobin 12.9 g/dL (12.0-15.0); Immature Granulocyte Absolute 0.02 K/mm3 (0.00-0.031); Immature Granulocyte Percent A 0.3 % (0-0.5); Lymphocytes Absolute Auto 0.66 K/mm3 (0.9-3.2); Lymphocytes Percent Auto 10.9 % (18.3-44.2); Mean Corpuscular HGB Conc 34.4 g/dl (32-36); Mean Corpuscular Hemoglobin 35.1 pg (26-34); Mean Corpuscular Volume 101.9 fl (80-100); Mean Platelet Volume 9.6 fl (7.4-10.4); Monocytes Absolute Auto 0.2 K/mm3 (0.1-0.6); Monocytes Percent Auto 3.5 % (2.6-8.5); Neutrophils Absolute Auto 5.2 K/mm3 (1.3-6.7); Neutrophils Percent Auto 85.1 % (45.5-73.1); Platelet Count Result 226 k/mm3 (150-375); Red Blood Count 3.68 M/mm3 (4.2-5.4); Red Cell Distribution Width 12.8 % (11.5-14.5); White Blood Count 6.1 K/mm3 (4.5-10.0)
[2022-05-31 02:57] LABS: Alanine Aminotransferase 100 U/L (6-35); Albumin Level 3.8 g/dL (3.5-5.1); Alkaline Phosphatase 189 U/L (38-126); Anion Gap 5 mmol/L (8-16); Aspartate Amino Transferase 118 U/L (14-36); Bilirubin,Total 0.8 mg/dL (0.2-1.3); Blood Urea Nitrogen 5 mg/dL (7-17); Calcium 8.3 mg/dL (8.4-10.2); Carbon Dioxide 26 mmol/L (22-30); Chloride 102 mmol/L (98-107); Estimated CRCL calculation 87 ml/min; Estimated Glomerular Filt Rate > 60; Glucose 158 mg/dL (65-110); Potassium 3.9 mmol/L (3.4-5.0); Sodium 133 mmol/L (137-145)
[2022-05-31] MEDS: ONDANSETRON INJ 4 MG/2 ML VIAL IV PUSH ×3 (03:22→12:56)
[2022-05-31] MEDS: MORPHINE SULFATE (*CRX) 2 MG/ML INJ IV PUSH (03:22)
[2022-05-31] MEDS: SODIUM CHLORIDE 0.9% IV 1,000 ML 100 ML IV CONT ×3 (03:27→23:52)
[2022-05-31 04:40] LABS: Hepatitis B Surface Antigen Negative (Negative)
[2022-05-31 04:45] LABS: HAV RESULT Negative (Negative); Hepatitis B Core IgM Result Negative (Negative)
[2022-05-31 04:57] LABS: Hepatitis C Virus Antibody Negative (Negative)
[2022-05-31] MEDS: PANTOPRAZOLE SODIUM IV 40 MG VIAL IV PUSH ×2 (08:22→16:50)
[2022-05-31] MEDS: ENOXAPARIN 40 MG/0.4 ML SYRINGE SUB-Q (08:22)
[2022-05-31] MEDS: fentaNYL CITRATE INJ (*CRX) 100 MCG/2 ML VIAL 50 MCG IV PUSH ×4 (08:28→22:13)
--- NOTE | 2022-05-31 08:44 | PM.CNGS ---
Assessment and Plan Assessment and plan (1) SBO (small bowel obstruction): Code(s): K56.609 - Unspecified intestinal obstruction, unspecified as to partial versus complete obstruction Status: Acute Assessment and Plan: extensive, complicated surgical history, will need to review previous surgical reports, cont conservative mgmt for now c bowel rest, NG decompression, IV hydration, will get SBS for further evaluation History of Present Illness Consult details Consult date: 05/31/22 Reason for consult: abdominal pain Requesting physician: Lakeisha Heck M.A., MD Narrative: Pt is a 61 y/o F c extensive past abd surgical history including gastric bypass, hernia repair and ?fistula, bowel resection secondary to SBO, presenting c recurrent SBO. Pt reports having severe, crampy abd pain beginning at about noon yesterday. Pt reports N/V, bloating. Pt reports last episode was about a yr ago and required exploration and bowel resection at [place]. Review of Systems Constitutional: Constitutional: Reports as per HPI, Reports anorexia, Reports fatigue, Denies fever(s), Denies increased appetite, Reports lethargy, Reports malaise, Reports poor appetite, Reports weakness, Denies weight gain and Denies weight loss Eyes: Eyes: Reports no additional eye complaints ENT: Reports system reviewed and no additional complaints, except as documented Cardiovascular: Cardiovascular: Reports no additional cardiovascular complaints Respiratory: Respiratory: Reports no additional respiratory complaints Gastrointestinal: Gastrointestinal: Reports as per HPI, Reports abdominal pain, Reports belching, Reports bloating, Reports change in bowel habits, Reports constipation, Reports GI cramping, Reports nausea, Reports vomiting and Denies hematemesis Genitourinary: Genitourinary: Reports no additional female genitourinary complaints Musculoskeletal: Musculoskeletal: Reports no additional musculoskeletal complaints Integumentary/Breasts: Skin/Breast: Reports system reviewed and no additional complaints, except as docu Neurologic: Reports system reviewed and no additional complaints, except as documented Psychiatric: Psychiatric: Reports no additional psychiatric complaints Endocrine: Endocrine: Reports no additional endocrine complaints Hematologic/Lymphatic: Hematologic/Lymphatic: Reports no additional hematologic/lymphatic complaints Allergic/Immunologic: Allergic/Immunologic: Reports no additional allergic/immunologic complaints PMFSH Past Medical History Medical History Acne vulgaris Acute pulmonary embolism Acute respiratory failure with hypoxia Chronic low back pain without sciatica Elevated troponin I level GERD without esophagitis History of COVID-19 06/2020 Pulmonary embolism Vitamin D deficiency Surgical History Surgical History H/O hernia repair (~06/16/21) exploratory laparotomy for internal hernia H/O varicose vein stripping 2009 History of bilateral knee replacement 2014 History of 1979 and 1987 History of cholecystectomy 1986 History of gastric bypass 1992 History of laparotomy 12/2018 - 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 History of umbilical hernia repair 1993 Family History Family History Mother Diabetes mellitus Hypertension Father Carcinoma of colon Grandparent Heart attack Social History Social History Social History: She works in a [employer] center. . Does not have a living will. 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 Smoking status: Never smoker Second hand tobacco smoke exposure: Yes (Previous smoked in home for 30 years.) Alcohol intake: current Drinks per week: 5 Substance use: former
--- NOTE | 2022-05-31 13:45 | PM.IMPN ---
Progress Note: A&P Assessment and Plan (1) SBO (small bowel obstruction): Code(s): K56.609 - Unspecified intestinal obstruction, unspecified as to partial versus complete obstruction Status: Acute Assessment and Plan: Review CT scan of the abdomen Nasogastric tube Unable to transfer to [facility] due to no availability of bed spoke to patient at length will switch patient to Phenergan IV Surgery consult appreciated IV hydration pain control (2) Venous thromboembolism: Code(s): I82.90 - Acute embolism and thrombosis of unspecified vein Status: Acute Assessment and Plan: History of PE status post surgery Received anticoagulation for 6 months According to the patient she is currently off anticoagulation Give DVT prophylaxis for now (3) Abnormal liver enzymes: Code(s): R74.8 - Abnormal levels of other serum enzymes Status: Acute Assessment and Plan: CT scan of the abdomen negative for acute finding hepatitis panel was negative ultrasound of the abdomen (4) GERD without esophagitis: Code(s): K21.9 - Gastro-esophageal reflux disease without esophagitis Status: Acute Assessment and Plan: PPI Time Spent With Patient Time with patient: 25 - 35 minutes Subjective Date/time seen: 05/31/22 13:45 Interval history: patient is still lot of discomfort complains of abdominal pain and lot of nausea not responding very well to Zofran Review of Systems Review of Systems: All systems reviewed & are unremarkable except as noted in HPI and below Exam Narrative: GENERAL: Well appearing, well-nourished, non-toxic, in no acute distress. HEAD: Normocephalic, atraumatic. NECK: Supple. No adenopathy, no masses. RESPIRATORY: Airway patent, respirations nonlabored. Clear to auscultation bilaterally, no rales, rhonchi, wheezing. CARDIOVASCULAR: Regular rate and rhythm without murmurs, rubs, or gallops. Peripheral pulses 2+ and equal bilaterally. ABDOMINAL: Soft, nontender, nondistended, no hepatosplenomegaly. Normoactive BS. MUSCULOSKELETAL: no Epigastric and no hypochondrial tenderness SKIN: Warm, dry, normal color. No rashes. NEURO: A&O X3. Moves all extremities PSYCHIATRIC: Appropriate mood and affect. Normal interaction. Objective Data Vital Signs Vital Signs: Vital Signs - 24 hr 05/30/22 17:05 05/30/22 23:50 05/31/22 00:55 Temperature 36.4 C Pulse Rate 63 98 78 Respiratory Rate 14 18 18 Blood Pressure 128/67 138/77 130/72 Pulse Oximetry 100 98 98 Oxygen Delivery Room Air 05/31/22 00:50 05/31/22 01:02 05/31/22 04:00 Temperature 36.8 C 36.6 C Pulse Rate 79 85 Respiratory Rate 14 18 Blood Pressure 161/98 H 137/79 Pulse Oximetry 98 96 Oxygen Delivery Room Air 05/31/22 06:00 05/31/22 08:05 Temperature 36.6 C Pulse Rate 85 Respiratory Rate 18 Blood Pressure 137/79 Pulse Oximetry 96 Oxygen Delivery Room Air Intake/Output Intake/Output: Intake & Output 05/28/22 05/29/22 05/30/22 05/31/22 23:59 23:59 23:59 23:59 Intake Total 0 Output Total 0 Balance 0 Meds/Results Medications: Active Medications Generic Name Dose Route Start Last Admin Trade Name Freq PRN Reason Stop Dose Admin Enoxaparin Sodium 40 mg 05/31/22 09:00 05/31/22 08:22 Enoxaparin 40 Mg/0.4 Ml Syringe SUB-Q 40 mg DAILY ESTHER Administration Fentanyl Citrate 50 mcg 05/30/22 22:59 05/31/22 13:10 Fentanyl Citrate Inj (*Crx) 100 Mcg/2 Ml Vial IV PUSH 50 mcg Q2H PRN Administration Pain Rated 7-10 Sodium Chloride 1,000 mls @ 100 mls/hr 05/30/22 23:00 05/31/22 03:27 Normal Saline Iv IV CONT 100 mls/hr .Q10H ESTHER Administration Ondansetron HCl 4 mg 05/31/22 11:33 05/31/22 12:56 Ondansetron Inj 4 Mg/2 Ml Vial IV PUSH 4 mg Q4H PRN Administration Nausea And Vomiting Pantoprazole Sodium 40 mg 05/31/22 09:00 05/31/22 08:22 Pantoprazole Sodium Iv 40 Mg Vial IV PUSH 40 mg
[2022-05-31] MEDS: PROMETHAZINE HCL 25 MG/ML AMPUL 12.5 MG IV PUSH ×2 (14:13→22:15)
[2022-05-31 14:37] LABS: Hematocrit 47.6 % (37.0-47.0); Hemoglobin 16.3 g/dL (12.0-15.0); Mean Corpuscular HGB Conc 34.2 g/dl (32-36); Mean Corpuscular Hemoglobin 34.9 pg (26-34); Mean Corpuscular Volume 101.9 fl (80-100); Mean Platelet Volume 9.6 fl (7.4-10.4); Platelet Count Result 278 k/mm3 (150-375); Red Blood Count 4.67 M/mm3 (4.2-5.4); Red Cell Distribution Width 13.1 % (11.5-14.5); White Blood Count 11.3 K/mm3 (4.5-10.0)
[2022-05-31 14:45] LABS: Alanine Aminotransferase 99 U/L (6-35); Albumin Level 4.6 g/dL (3.5-5.1); Alkaline Phosphatase 247 U/L (38-126); Anion Gap 11 mmol/L (8-16); Aspartate Amino Transferase 74 U/L (14-36); Bilirubin,Total 1.2 mg/dL (0.2-1.3); Blood Urea Nitrogen 9 mg/dL (7-17); Calcium 10.1 mg/dL (8.4-10.2); Carbon Dioxide 26 mmol/L (22-30); Chloride 106 mmol/L (98-107); Estimated CRCL calculation 73 ml/min; Estimated Glomerular Filt Rate > 60; Glucose 167 mg/dL (65-110); Potassium 3.6 mmol/L (3.4-5.0); Sodium 143 mmol/L (137-145)
[2022-05-31] MEDS: METOPROLOL TARTRATE INJ 5 MG/5 ML VIAL 10 MG IV PUSH (14:48)
[2022-05-31] MEDS: hydrALAZINE HCL 20 MG/ML VIAL 5 MG IV PUSH (15:52)
--- NOTE | 2022-05-31 16:29 | PC.NURSE ---
1430 pts blood pressure elevated. provider made aware order for 10mg lopresser. after 40 mins, pts b/p 162/110, provider made aware. new order for hydralyzine 5mg, after 30 mins pts b/p 172/112. provider made aware.
--- NOTE | 2022-05-31 17:00 | PC.NURSE ---
provider at bedside and did b/p himself, he got 150/90 and is putting in orders for iv medications.
[2022-06-01] VITALS (9 sets, daily range): BP systolic 119–168; BP diastolic 73–102; PULSE 80–109; RESP 14–18; TEMP 36.4–37.8; O2SAT 92–97
[2022-06-01] MEDS: fentaNYL CITRATE INJ (*CRX) 100 MCG/2 ML VIAL 50 MCG IV PUSH ×3 (01:47→07:13)
[2022-06-01] MEDS: PROMETHAZINE HCL 25 MG/ML AMPUL 12.5 MG IV PUSH (03:17)
--- NOTE | 2022-06-01 05:11 | PC.NURSE ---
Pt having pain through out shift. Pt has rested periodically. Pt has had some spells of n/v. Pt participated and contributed in plan of care. Pt has no other reports at this time. Will continue to monitor pt.
[2022-06-01] MEDS: hydrALAZINE HCL 20 MG/ML VIAL 10 MG IV PUSH (07:12)
[2022-06-01 07:21] LABS: Basophils Percent Auto 0.4 % (0.2-1.2); Hemoglobin 14.2 g/dL (12.0-15.0); Immature Granulocyte Absolute 0.03 K/mm3 (0.00-0.031); Immature Granulocyte Percent A 0.4 % (0-0.5); Lymphocytes Absolute Auto 1.11 K/mm3 (0.9-3.2); Lymphocytes Percent Auto 13.4 % (18.3-44.2); Mean Corpuscular Hemoglobin 34.5 pg (26-34); Mean Corpuscular Volume 104.4 fl (80-100); Mean Platelet Volume 10.1 fl (7.4-10.4); Monocytes Absolute Auto 0.6 K/mm3 (0.1-0.6); Monocytes Percent Auto 7.7 % (2.6-8.5); Neutrophils Absolute Auto 6.5 K/mm3 (1.3-6.7); Neutrophils Percent Auto 78.1 % (45.5-73.1); Platelet Count Result 250 k/mm3 (150-375); Red Blood Count 4.12 M/mm3 (4.2-5.4); Red Cell Distribution Width 13.1 % (11.5-14.5); White Blood Count 8.3 K/mm3 (4.5-10.0)
[2022-06-01 07:30] LABS: Alanine Aminotransferase 61 U/L (6-35); Albumin Level 3.9 g/dL (3.5-5.1); Alkaline Phosphatase 160 U/L (38-126); Anion Gap 12 mmol/L (8-16); Aspartate Amino Transferase 38 U/L (14-36); Bilirubin,Total 0.8 mg/dL (0.2-1.3); Blood Urea Nitrogen 10 mg/dL (7-17); Calcium 8.7 mg/dL (8.4-10.2); Carbon Dioxide 29 mmol/L (22-30); Chloride 104 mmol/L (98-107); Estimated CRCL calculation 73 ml/min; Estimated Glomerular Filt Rate > 60; Glucose 113 mg/dL (65-110); Potassium 2.9 mmol/L (3.4-5.0); Sodium 145 mmol/L (137-145)
--- NOTE | 2022-06-01 09:13 | WPDHPUPDATE1 ---
History and Physical Update Update Date/Time: 06/01/22 09:13 History and Physical has been reviewed, including an updated exam of the patient. There are NO changes in the patient's condition. Risks, benefits, and alternatives have been discussed and questions answered. Patient agrees to proceed with procedure. Long d/w pt and decision to proceed c surgical intervention at [facility] given lack of transfer option at [facility]. Pt understands procedure will be open exploratory laparotomy, possible bowel resection, possible ostomy.
--- NOTE | 2022-06-01 10:47 | PM.PNGS ---
Progress Note: A&P Assessment and Plan (1) SBO (small bowel obstruction): Code(s): K56.609 - Unspecified intestinal obstruction, unspecified as to partial versus complete obstruction Status: Acute Assessment and Plan: resolving, multiple BMs overnight, exam benign, AXR much improved, will clamp NG and poss remove later and start clears, hold off on surgical intervention for now Subjective Subjective Date/Time Seen: 06/01/22 10:47 feels much better today, had multiple loose BMs overnight, no further pain, N/V Review of Systems Review of Systems: All systems reviewed & are unremarkable except as noted in HPI and below Exam Const: General: cooperative, comfortable, no acute distress and tired appearing Resp: Auscultation: clear to auscultation bilaterally Cardio: Rate: regular rate Rhythm: regular rhythm GI: Inspection: normal to inspection, non-distended and incision GI Palp: No abdominal tenderness, Yes Soft to palpation, No Tenderness to palpation present (GI), No Guarding due to palpation present (GI) and No Rigid due to palpation Objective Data Vital Signs Vital Signs: Vital Signs - 24 hr 05/31/22 13:00 05/31/22 14:00 05/31/22 14:41 Temperature 36.5 C Pulse Rate 99 Respiratory Rate 16 Blood Pressure 161/117 H 136/104 H 170/110 H Pulse Oximetry 96 Oxygen Delivery 05/31/22 14:48 05/31/22 15:30 05/31/22 16:30 Temperature Pulse Rate 90 Respiratory Rate Blood Pressure 162/110 H 172/112 H Pulse Oximetry Oxygen Delivery 05/31/22 17:06 05/31/22 20:00 06/01/22 00:00 Temperature 37.2 C 37.1 C Pulse Rate 83 80 Respiratory Rate 16 14 Blood Pressure 150/90 H 151/92 H 159/83 H Pulse Oximetry 95 93 Oxygen Delivery 05/31/22 23:52 06/01/22 04:00 06/01/22 06:00 Temperature 36.9 C 36.9 C Pulse Rate 81 81 Respiratory Rate 16 14 Blood Pressure 168/102 H 168/102 H Pulse Oximetry 92 92 Oxygen Delivery Room Air 06/01/22 08:00 Temperature 37.4 C Pulse Rate 109 H Respiratory Rate 18 Blood Pressure 153/99 H Pulse Oximetry 92 Oxygen Delivery Intake/Output Intake/Output: Intake & Output 05/29/22 05/30/22 05/31/22 06/01/22 23:59 23:59 23:59 23:59 Intake Total 2180 Output Total 2600 Balance -420 Meds/Results Medications: Active Medications Generic Name Dose Route Start Last Admin Trade Name Freq PRN Reason Stop Dose Admin Enoxaparin Sodium 40 mg 05/31/22 09:00 05/31/22 08:22 Enoxaparin 40 Mg/0.4 Ml Syringe SUB-Q 40 mg DAILY ESTHER Administration Fentanyl Citrate 50 mcg 05/30/22 22:59 06/01/22 07:13 Fentanyl Citrate Inj (*Crx) 100 Mcg/2 Ml Vial IV PUSH 50 mcg Q2H PRN Administration Pain Rated 7-10 Hydralazine HCl 10 mg 05/31/22 17:02 06/01/22 07:12 Hydralazine Hcl 20 Mg/Ml Vial IV PUSH 10 mg Q8H PRN Administration Blood Pressure - High Sodium Chloride 1,000 mls @ 100 mls/hr 05/30/22 23:00 05/31/22 23:52 Normal Saline Iv IV CONT 100 mls/hr .Q10H ESTHER Administration Ondansetron HCl 4 mg 05/31/22 11:33 05/31/22 12:56 Ondansetron Inj 4 Mg/2 Ml Vial IV PUSH 4 mg Q4H PRN Administration Nausea And Vomiting Pantoprazole Sodium 40 mg 05/31/22 09:00 05/31/22 16:50 Pantoprazole Sodium Iv 40 Mg Vial IV PUSH 40 mg BID ESTHER Administration Promethazine HCl 12.5 mg 05/31/22 13:44 06/01/22 03:17 Promethazine Hcl 25 Mg/Ml Ampul IV PUSH 12.5 mg Q4H PRN Administration Nausea And Vomiting Radiology Results: ITS Impressions Abdomen/Pelvis CT 05/30/22 21:49 IMPRESSION: 1. Findings concerning for closed loop small bowel obstruction. Apparent hypoenhancement of pelvic small bowel loops adjacent mesenteric edema which could be due to bowel wall edema and/or bowel ischemia. Surgical evaluation is recommended. Small Bowel X-Ray 05/31/22 15:00 IMPRESSION: High-grade distal small bowel obstruction Dr. Gilliam telephoned Dr. Ronquillo's off
--- NOTE | 2022-06-01 11:00 | SUR.PREOP ---
1010 DR GIBSON HERE, SURGERY TO BE CANCELLED D/T PT HAVING BMS THIS AM. 1030 PT RETURNED TO ROOM PER BED
--- NOTE | 2022-06-01 12:45 | PM.IMPN ---
Progress Note: A&P Assessment and Plan (1) GERD without esophagitis: Code(s): K21.9 - Gastro-esophageal reflux disease without esophagitis Status: Acute (2) SBO (small bowel obstruction): Code(s): K56.609 - Unspecified intestinal obstruction, unspecified as to partial versus complete obstruction Status: Acute (3) Abnormal liver enzymes: Code(s): R74.8 - Abnormal levels of other serum enzymes Status: Acute Plan patient has no small bowel obstruction. NG tube in stop. Diet as tolerated clear liquids will wait for surgical okay. Patient blood pressures to running control hydralazine will switch to oral antihypertensives when able to eat. possible discharge in the morning DVT prophylaxis. GI prophylaxis. All records reviewed Discussed plan of care with the nursing staff and with the patient in detail. Answered all questions and concerns from the patient. All labs have been reviewed. Code status updated dictation may have been done utilizing a voice recognition system. Attempts have been made to correct errors. However, there may be uncorrected grammatical, spelling, and recognition errors present. Subjective Date/time seen: 06/01/22 12:45 Interval history: No new complaints abdominal pain lot better NG tube still in place Exam Const: General: comfortable HENMT: Ears: TM's normal bilaterally Eyes: General: appearance normal, both eyes and all related structures Neck: Neck: supple and no JVD Resp: Effort & Inspection: normal respiratory effort Cardio: Rate: regular rate Rhythm: regular rhythm GI: GI Palp: Yes Soft to palpation, No Tenderness to palpation present (GI), No Guarding due to palpation present (GI) and No Hernia present Auscultation: normal bowel sounds Neuro: General: gait normal Speech: normal speech Motor exam (neuro): 5/5 motor strength present throughout Extrem: General: normal to inspection Objective Data Vital Signs Vital Signs: Vital Signs - 24 hr 05/31/22 13:00 05/31/22 14:00 05/31/22 14:41 Temperature 36.5 C Pulse Rate 99 Respiratory Rate 16 Blood Pressure 161/117 H 136/104 H 170/110 H Pulse Oximetry 96 Oxygen Delivery 05/31/22 14:48 05/31/22 15:30 05/31/22 16:30 Temperature Pulse Rate 90 Respiratory Rate Blood Pressure 162/110 H 172/112 H Pulse Oximetry Oxygen Delivery 05/31/22 17:06 05/31/22 20:00 06/01/22 00:00 Temperature 37.2 C 37.1 C Pulse Rate 83 80 Respiratory Rate 16 14 Blood Pressure 150/90 H 151/92 H 159/83 H Pulse Oximetry 95 93 Oxygen Delivery 05/31/22 23:52 06/01/22 04:00 06/01/22 06:00 Temperature 36.9 C 36.9 C Pulse Rate 81 81 Respiratory Rate 16 14 Blood Pressure 168/102 H 168/102 H Pulse Oximetry 92 92 Oxygen Delivery Room Air 06/01/22 08:00 06/01/22 09:29 06/01/22 08:00 Temperature 37.4 C 37.8 C H Pulse Rate 109 H 93 Respiratory Rate 18 18 Blood Pressure 153/99 H 157/87 H Pulse Oximetry 92 95 Oxygen Delivery Room Air Room Air Intake/Output Intake/Output: Intake & Output 05/29/22 05/30/22 05/31/22 06/01/22 23:59 23:59 23:59 23:59 Intake Total 2180 Output Total 2600 Balance -420 Meds/Results Medications: Active Medications Generic Name Dose Route Start Last Admin Trade Name Freq PRN Reason Stop Dose Admin Enoxaparin Sodium 40 mg 05/31/22 09:00 05/31/22 08:22 Enoxaparin 40 Mg/0.4 Ml Syringe SUB-Q 40 mg DAILY ESTHER Administration Fentanyl Citrate 50 mcg 05/30/22 22:59 06/01/22 07:13 Fentanyl Citrate Inj (*Crx) 100 Mcg/2 Ml Vial IV PUSH 50 mcg Q2H PRN Administration Pain Rated 7-10 Hydralazine HCl 10 mg 05/31/22 17:02 06/01/22 07:12 Hydralazine Hcl 20 Mg/Ml Vial IV PUSH 10 mg Q8H PRN Administration Blood Pressure - High Sodium Chloride 1,000 mls @ 100 mls/hr 05/30/22 23:00 05/31/22 23:52 Normal Saline Iv IV CONT 100 mls/hr .Q10H ESTHER Administra
[2022-06-01] MEDS: ACETAMINOPHEN 325 MG TABLET 650 MG PO (17:15)
[2022-06-01] MEDS: PANTOPRAZOLE SODIUM IV 40 MG VIAL IV PUSH (17:16)
[2022-06-01] MEDS: SODIUM CHLORIDE 0.9% IV 1,000 ML 100 ML IV CONT (17:20)
[2022-06-02] MEDS: SODIUM CHLORIDE 0.9% IV 1,000 ML 100 ML IV CONT (03:25)
[2022-06-02 06:05] VITALS: BP 119/73; PULSE 72; RESP 16; TEMP 36.7; O2SAT 96
[2022-06-02 07:47] LABS: Basophils Percent Auto 0.7 % (0.2-1.2); Eosinophils Absolute Auto 0.1 K/mm3 (0-0.3); Eosinophils Percent Auto 2.2 % (0-4.4); Hematocrit 33.3 % (37.0-47.0); Hemoglobin 11.2 g/dL (12.0-15.0); Immature Granulocyte Absolute 0.02 K/mm3 (0.00-0.031); Immature Granulocyte Percent A 0.4 % (0-0.5); Lymphocytes Percent Auto 35.3 % (18.3-44.2); Mean Corpuscular HGB Conc 33.6 g/dl (32-36); Mean Corpuscular Volume 101.2 fl (80-100); Mean Platelet Volume 10.3 fl (7.4-10.4); Monocytes Absolute Auto 0.5 K/mm3 (0.1-0.6); Monocytes Percent Auto 9.5 % (2.6-8.5); Neutrophils Absolute Auto 2.8 K/mm3 (1.3-6.7); Neutrophils Percent Auto 51.9 % (45.5-73.1); Platelet Count Result 170 k/mm3 (150-375); Red Blood Count 3.29 M/mm3 (4.2-5.4); Red Cell Distribution Width 12.7 % (11.5-14.5); White Blood Count 5.4 K/mm3 (4.5-10.0)
[2022-06-02 08:00] VITALS: BP 136/89; PULSE 90; RESP 18; TEMP 37.3; O2SAT 97
[2022-06-02 08:10] LABS: Alanine Aminotransferase 36 U/L (6-35); Albumin Level 2.8 g/dL (3.5-5.1); Alkaline Phosphatase 95 U/L (38-126); Anion Gap 7 mmol/L (8-16); Aspartate Amino Transferase 26 U/L (14-36); Bilirubin,Total 0.6 mg/dL (0.2-1.3); Blood Urea Nitrogen 5 mg/dL (7-17); Calcium 7.5 mg/dL (8.4-10.2); Carbon Dioxide 28 mmol/L (22-30); Chloride 101 mmol/L (98-107); Estimated CRCL calculation 86 ml/min; Estimated Glomerular Filt Rate > 60; Glucose 88 mg/dL (65-110); Potassium 2.5 mmol/L (3.4-5.0); Sodium 136 mmol/L (137-145)
[2022-06-02] MEDS: ENOXAPARIN 40 MG/0.4 ML SYRINGE SUB-Q (08:22)
[2022-06-02] MEDS: PANTOPRAZOLE SODIUM IV 40 MG VIAL IV PUSH ×2 (08:23→18:22)
[2022-06-02] MEDS: POTASSIUM CHLORIDE INJ 40 MEQ in SODIUM CHLORIDE 0.9% IV 500 ML 130 MEQ IVPB ×2 (09:47→18:21)
--- NOTE | 2022-06-02 11:09 | PM.DS ---
DS: Admitting Diagnosis Discharge Date 06/02/22 Admitting Diagnosis Small-bowel obstruction DS: Discharge Diagnosis Discharge Diagnosis (1) Small bowel volvulus: Code(s): K56.2 - Volvulus Status: Acute (2) Abnormal liver enzymes: Code(s): R74.8 - Abnormal levels of other serum enzymes Status: Acute (3) SBO (small bowel obstruction): Code(s): K56.609 - Unspecified intestinal obstruction, unspecified as to partial versus complete obstruction Status: Acute (4) GERD without esophagitis: Code(s): K21.9 - Gastro-esophageal reflux disease without esophagitis Status: Acute (5) Chronic low back pain without sciatica: Code(s): M54.5 - Low back pain; G89.29 - Other chronic pain Status: Acute DS: Summary Hospital Course Hospital Course: Patient is a pleasant 61-year-old female came to the hospital complaining of abdominal pain nausea and vomiting. Patient had gastric bypass surgery many years ago status post partial colectomy in 2020 was admitted with ileus/small-bowel obstruction. Patient was seen by surgical team NGT was placed continued on anti nausea medication conservative management was done. Repeat abdominal x-ray shows ileus/small-bowel obstruction. Recent x-ray looks the Gastrografin is passing through all the way patient has been feeling a lot better since last night. NG tube has been discontinued patient tolerating clear liquids advance diet as tolerated. Patient was noted to have a potassium of 2.8 for which care is being given and will go home on potassium oral supplement. Patient has been advised to modify diet to her medical condition she understands agrees with management. Also advised to follow up with GI as an outpatient. Repeat labs to be done by patient's primary care physician to recheck potassium in about a week. Patient is cleared for discharge Time spent discussing smoking cessation with patient: 3 to 10 minutes Status at Discharge Functional status at discharge: independent ambulation Overall status at discharge: patient is back to baseline Time Spent with Patient Time attestation: Total time spent providing and/or coordinating discharge services: Time spent: Less than 30 minutes Exam Const: Other: GENERAL: Well appearing, well-nourished, non-toxic, in no acute distress. HEAD: Normocephalic, atraumatic. NECK: Supple. No adenopathy, no masses. RESPIRATORY: Airway patent, respirations nonlabored. Clear to auscultation bilaterally, no rales, rhonchi, wheezing. CARDIOVASCULAR: Regular rate and rhythm without murmurs, rubs, or gallops. Peripheral pulses 2+ and equal bilaterally. ABDOMINAL: Soft, nontender, nondistended, no hepatosplenomegaly. Normoactive BS. MUSCULOSKELETAL: no Epigastric and no hypochondrial tenderness SKIN: Warm, dry, normal color. No rashes. NEURO: A&O X3. Moves all extremities PSYCHIATRIC: Appropriate mood and affect. Normal interaction. DS: Data Data Completed and Pending Labs on day of discharge: Labs from last 24 hours 06/02/22 06/02/22 06:48 06:48 WBC 5.4 RBC 3.29 L Hgb 11.2 L D Hct 33.3 L MCV 101.2 H MCH 34.0 MCHC 33.6 RDW 12.7 Plt Count 170 MPV 10.3 Immature Gran % (Auto) 0.4 Neut % (Auto) 51.9 Lymph % (Auto) 35.3 Campbell % (Auto) 9.5 H Eos % (Auto) 2.2 Baso % (Auto) 0.7 Lymph # (Auto) 1.90 Campbell # (Auto) 0.5 Eos # (Auto) 0.1 Baso # (Auto) 0.0 Abs Immat Gran (auto) 0.02 Absolute Neuts (auto) 2.8 Absolute Nucleated RBC 0.0 Nucleated RBC % 0.0 Sodium 136 L Potassium 2.5 L* Chloride 101 Carbon Dioxide 28 Anion Gap 7 L BUN 5 L D Creatinine 0.50 L Estim Creat Clear Calc 86 Estimated GFR > 60 Glucose 88 Calcium 7.5 L Total Bilirubin 0.6 AST 26 ALT 36 H Alkaline Phosphatase 95 Total Protein 5.0 L Albumin 2.8 L Discharge Plan Discharge Consulting providers: Rosemarie Ronquillo Discharging Clinician: Flakito Ochoa
--- NOTE | 2022-06-02 11:12 | PCNFU ---
Nutrition Follow-Up Complete: Involuntary weight loss related to chronic illness as evidenced by -13% weight loss/7 months Goal: Advance to PO intake as medically able - Goal is met Pt current nutrition is Regular diet. Nutrition recommendation: Agree with diet orders. Last recorded weight is 63 kg. Bowel Motility: Multiple BMs overnight Labs Reviewed: Alb 2.8, Na 136, K+ 2.5, BUN 5 Meds Noted: Zofran, Protonix, phenergan Skin: WNL Additional Notes: SBO is resolved. NG taken out. Pt was just advanced to regular diet and she was ready to eat when seen. Says she lost weight because of the previous abdominal surgery partial colectomy 2020. Monitoring diet advancement, plan of care, mervat, labs Follow up in 3 days
[2022-06-02 12:00] VITALS: BP 130/83; PULSE 78; RESP 18; TEMP 37.3; O2SAT 97
[2022-06-02 14:48] LABS: Potassium 2.6 mmol/L (3.4-5.0)
--- NOTE | 2022-06-02 14:59 | PM.PNGS ---
Progress Note: A&P Assessment and Plan (1) SBO (small bowel obstruction): Code(s): K56.609 - Unspecified intestinal obstruction, unspecified as to partial versus complete obstruction Status: Acute Assessment and Plan: Bowel obstruction resolved. Tolerating regular diet. Discussed staying on soft diet for 1-2 weeks. Return to ED for recurrent symptoms. Follow up PRN. OK to discharge today if medically stable. Subjective Subjective Date/Time Seen: 06/02/22 14:59 Interval history: Tolerating regular diet. No bloating, nausea, or vomiting. No abdominal pain. Bowels moving. Exam GI: Inspection: non-distended and scar GI Palp: Yes Soft to palpation, No Tenderness to palpation present (GI), No Guarding due to palpation present (GI) and No Rebound tenderness present Percussion: Yes normal to percussion Auscultation: normal bowel sounds Objective Data Vital Signs Vital Signs: Vital Signs - 24 hr 06/01/22 15:53 06/01/22 20:00 06/02/22 06:05 Temperature 37.4 C 36.4 C L 36.7 C Pulse Rate 97 86 72 Respiratory Rate 18 16 16 Blood Pressure 134/78 119/73 119/73 Pulse Oximetry 95 97 96 Oxygen Delivery 06/02/22 08:00 06/02/22 08:00 06/02/22 12:00 Temperature 37.3 C 37.3 C Pulse Rate 90 78 Respiratory Rate 18 18 Blood Pressure 136/89 130/83 Pulse Oximetry 97 97 Oxygen Delivery Room Air Intake/Output Intake/Output: Intake & Output 05/30/22 05/31/22 06/01/22 06/02/22 23:59 23:59 23:59 23:59 Intake Total 2180 3560 2460 Output Total 2600 Balance -420 3560 2460 Meds/Results Medications: Active Medications Generic Name Dose Route Start Last Admin Trade Name Freq PRN Reason Stop Dose Admin Acetaminophen 650 mg 06/01/22 16:53 06/01/22 17:15 Acetaminophen 325 Mg Tablet PO 650 mg Q4H PRN Administration Mild Pain (1-3) or Fever Enoxaparin Sodium 40 mg 05/31/22 09:00 06/02/22 08:22 Enoxaparin 40 Mg/0.4 Ml Syringe SUB-Q 40 mg DAILY ESTHER Administration Fentanyl Citrate 50 mcg 05/30/22 22:59 06/01/22 07:13 Fentanyl Citrate Inj (*Crx) 100 Mcg/2 Ml Vial IV PUSH 50 mcg Q2H PRN Administration Pain Rated 7-10 Hydralazine HCl 10 mg 05/31/22 17:02 06/01/22 07:12 Hydralazine Hcl 20 Mg/Ml Vial IV PUSH 10 mg Q8H PRN Administration Blood Pressure - High Sodium Chloride 1,000 mls @ 100 mls/hr 05/30/22 23:00 06/02/22 03:25 Normal Saline Iv IV CONT 100 mls/hr .Q10H ESTHER Administration Ondansetron HCl 4 mg 05/31/22 11:33 05/31/22 12:56 Ondansetron Inj 4 Mg/2 Ml Vial IV PUSH 4 mg Q4H PRN Administration Nausea And Vomiting Pantoprazole Sodium 40 mg 05/31/22 09:00 06/02/22 08:23 Pantoprazole Sodium Iv 40 Mg Vial IV PUSH 40 mg BID ESTHER Administration Promethazine HCl 12.5 mg 05/31/22 13:44 06/01/22 03:17 Promethazine Hcl 25 Mg/Ml Ampul IV PUSH 12.5 mg Q4H PRN Administration Nausea And Vomiting Radiology Results: ITS Impressions Abdomen/Pelvis CT 05/30/22 21:49 IMPRESSION: 1. Findings concerning for closed loop small bowel obstruction. Apparent hypoenhancement of pelvic small bowel loops adjacent mesenteric edema which could be due to bowel wall edema and/or bowel ischemia. Surgical evaluation is recommended. Small Bowel X-Ray 05/31/22 15:00 IMPRESSION: High-grade distal small bowel obstruction Dr. Gilliam telephoned Dr. Ronquillo's office, but he was in surgery. Dr. Gilliam reported the findings to his medical research tech. Azra, including the finding of a very high-grade obstruction of the distal small bowel confirmed by CT as well as a small bowel series and the concern for the presence of a closed-loop obstruction is suggested by CT examination and the possible development of ischemic or necrotic small bowel as result. Strong consideration was recommended by Dr. Gilliam for surgical intervention. Upper Quadrant Ultrasound 05/31/22 15:09 IMPRESSION: 1. Multiple loops of di
[2022-06-02] MEDS: POTASSIUM CHLORIDE 20 MEQ TABLET 40 MEQ PO (15:37)
[2022-06-02 16:00] VITALS: BP 133/91; PULSE 72; RESP 18; TEMP 37.5; O2SAT 96
[2022-06-02 17:58] LABS: Potassium 2.6 mmol/L (3.4-5.0)
--- NOTE | 2022-06-02 18:10 | PC.NURSE ---
Dr Ochoa wants patient to get a 40meK of potassium IV once then discharge after with a order for BMP outpatient.
[2022-06-02 20:00] VITALS: BP 127/89; PULSE 81; RESP 16; TEMP 36.6; O2SAT 96
== END 2022-06-02 21:57 | disposition home or self-care (01) | DRG 390 ==
LOC: ANHED 22:57 → ANH3MEDSUR 05-31 00:20
PROVIDERS: Emergency Medicine; Surgery; Admitting Provider Internal Medicine; Emergency Provider Nurse Practitioner Family; PCP Family Medicine; Visit Provider Internal Medicine
PROC: (CPT 49000; principal; 2022-06-01 11:00)
DX: K56.2 Volvulus (principal); K21.9 Gastro-esophageal reflux disease without esophagitis; M54.50 Low back pain, unspecified; G89.29 Other chronic pain; Z98.84 Bariatric surgery status; Z90.49 Acquired absence of other specified parts of digestive tract; Z86.711 Personal history of pulmonary embolism; Z86.16 Personal history of COVID-19; Z96.653 Presence of artificial knee joint, bilateral; Z20.822 Contact with and (suspected) exposure to COVID-19
CPT/HCPCS: 36415; 74018; 74177; 74250; 76705; 80053; 80074; 81001; 83605; 83690; 84132; 85025; 85027; 87636; 96361; 96374; 96375; 99285; A9270; C9113; J0360; J1650; J2270; J2405; J2550; J3010; J3480; J7030; J7040; Q9967

== ENCOUNTER 2022-06-05 08:42 | Outpatient (CLI) | payer OTHER, SELFPAY ==
[2022-06-05 09:45] LABS: Anion Gap 7 mmol/L (8-16); Blood Urea Nitrogen 7 mg/dL (7-17); Carbon Dioxide 29 mmol/L (22-30); Chloride 101 mmol/L (98-107); Estimated Glomerular Filt Rate > 60; Glucose 92 mg/dL (65-110); Potassium 3.6 mmol/L (3.4-5.0); Sodium 137 mmol/L (137-145)
== END 2022-06-05 08:43 | disposition home or self-care (01) ==
LOC: ANHLAB 08:43
PROVIDERS: PCP Family Medicine; Visit Provider Internal Medicine
DX: E87.6 Hypokalemia (principal)
CPT/HCPCS: 36415; 80048

== ENCOUNTER → 2023-07-18 15:45 | Outpatient (CLI) | payer OTHER, SELFPAY ==
--- NOTE | ~2023-07-18 | MM_ITS ---
EXAMINATION: MM screening [facility] BI w lolly HISTORY: Screening mammogram TECHNIQUE: Craniocaudal and mediolateral oblique 3-D tomosynthesis images were obtained and synthetic 2-D images were generated. CAD analysis was submitted and interpreted. COMPARISON: 05/08/2022, 04/15/2022, 01/31/2021, 02/17/2019 BREAST PARENCHYMAL COMPOSITION: There are scattered areas of fibroglandular density. FINDINGS: Cysts are again noted in the upper outer quadrant of the right breast. No suspicious mass, calcification, or architectural distortion are identified in either breast to suggest malignancy. The re has been no suspicious interval change. IMPRESSION: 1. No mammographic evidence of malignancy. 2. Recommend routine screening mammography in one year. BI-RADS Category 2: Benign finding(s). Reviewed, dictated and finalized at location A. L SEWER
== END ==
PROVIDERS: PCP Advanced Practice Midwife; Visit Provider Nurse Practitioner Obstetrics & Gynecology
DX: Z12.31 Encounter for screening mammogram for malignant neoplasm of breast (principal)
CPT/HCPCS: 77063; 77067

== ENCOUNTER 2024-07-17 14:40 | Emergency (ER) | payer OTHER, SELFPAY ==
--- NOTE | ~2024-07-17 | CT_ITS ---
CT abdomen pelvis wo con Ordering provider: Juanito Smith History: 63 years Female with . fall 2 days ago. L flank pain. trauma vs kidney st . Comparison: May 30, 2022 and July 17, 2024 Technique: CT abdomen and pelvis without IV and without oral contrast. Automated exposure control and iterative reconstruction technique were employed. The dose-length product was 622.91 mGy-cm. Findings: VISUALIZED LOWER CHEST: subsegmental atelectasis in the right lung base unchanged. Dependent atelecta tic changes in the left lung base. UPPER ABDOMINAL ORGANS: Liver: Normal. Gallbladder: Status post cholecystectomy. Spleen: Normal. Stomach/duodenum: Sliding hiatus hernia. Fibrotic changes Pancreas: Small cystic area in the posterior aspect of the third of the pancreas unchanged from previ ous examination measuring 1.1 cm. Slightly prominent pancreatic duct. Adrenals: Normal. Kidneys: Residual contrast in the kidneys. The possibility of a stone seen in the left kidney is not clear on this study. Aneurysm cannot be excluded. Further evaluation advised. PELVIC ORGANS: The bladder is underfilled. Evaluation for cystitis advised. Contrast seen in the blad barbara. BOWEL AND MESENTERY: Colon: No evidence of diverticulitis. No evidence of appendicitis. Small Bowel: Normal. No obstruction. Peritoneum/mesentery: No free air or free fluid. No mesenteric lymphadenopathy. RETROPERITONEUM: Mild atheromatous disease of the abdominal aorta. No retroperitoneal lymphadenopat hy. MUSCULOSKELETAL: Superficial soft tissues: The superficial soft tissues are normal. Bones: Age appropriate degenerative changes of the spine. Possible fracture in the left 11th rib. Old healed fractures seen in the left 10th and ninth ribs. IMPRESSION: 1. Subsegmental atelectasis in the right lung base with dependent atelectatic changes in the left alex ng base. 2. Sliding hiatus hernia. 3. Residual contrast seen in the kidneys and urinary bladder with the possibility of stone seen in t he previous study in the left kidney cannot be excluded and not well demonstrated due to the contrast . Aneurysm cannot be excluded although less likely. Further evaluation advised. 4. Fracture left 11th rib most likely acute. Chronic fractures in the left 10th and ninth ribs. 5. Cystic area in the posterior aspect of the head of the pancreas unchanged from previous examinati on with slightly prominent pancreatic duct. Reviewed, dictated and finalized at location A. OUT NANNY IMPRESSION: 1. Subsegmental atelectasis in the right lung base with dependent atelectatic changes in the left lung base. 2. Sliding hiatus hernia. 3. Residual contrast seen in the kidneys and urinary bladder with the possibil ity of stone seen in the previous study in the left kidney cannot be excluded a nd not well demonstrated due to the contrast. Aneurysm cannot be excluded altho ugh less likely. Further evaluation advised. 4. Fracture left 11th rib most likely acute. Chronic fractures in the left 10t h and ninth ribs. 5. Cystic area in the posterior aspect of the head of the pancreas unchanged f rom previous examination with slightly prominent pancreatic duct.
--- NOTE | ~2024-07-17 | CT_ITS ---
CTA chest PE protocol Ordering provider: Savanna Leija PA-C History: 63 years Female with . chest pain, hx of PE . Comparison: None. Technique: CT angiogram chest was performed following timed intravenous injection of contrast. Thin s lice axial images and reformatted coronal images were obtained. Three dimensional reformatted images of the chest were also obtained using a [employer] workstation. . Automated exposure control and iterati ve reconstruction technique were employed. The dose-length product was 187.24 mGy-cm. 100 mL Omnipaqu e 350 was given IV. Findings: PULMONARY ARTERIES: No pulmonary embolus. VISUALIZED THORACIC INLET: Normal. MEDIASTINUM: Aorta/coronary arteries: Mild atheromatous disease. Heart/other: The heart is slightly enlarged. Lymph nodes: No mediastinal or hilar adenopathy. LUNGS: Subsegmental atelectatic changes in the right lung base. Follow-up to exclude underlying nodule is ad vised. Dependent atelectatic changes. No pulmonary nodules or masses. No infiltrates or effusions. No pneumothorax. VISUALIZED UPPER ABDOMEN: Status post cholecystectomy. 7 mm left kidney stone. Fat infiltration of th e liver. Sliding hiatus hernia with postoperative changes in the stomach. Otherwise, the visualized u pper abdomen is normal. MUSCULOSKELETAL: Soft tissues: The superficial soft tissues are normal. Bones: Age appropriate degenerative changes of the spine. Old nonhealed fracture in the distal right clavicular. Old healed fractures in the left lower thorax. Small sclerotic areas seen in the left fif th rib. IMPRESSION: 1. No pulmonary embolism. 2. No acute cardiopulmonary pathology. 3. Subsegmental atelectasis in the right lung base. Follow-up to exclude underlying nodule is advise d. 4. Left kidney stone. 5. Sliding hiatus hernia with postoperative changes. 6. Fat infiltration of the liver. Reviewed, dictated and finalized at location A. B PHYSICIAN IMPRESSION: 1. No pulmonary embolism. 2. No acute cardiopulmonary pathology. 3. Subsegmental atelectasis in the right lung base. Follow-up to exclude under lying nodule is advised. 4. Left kidney stone. 5. Sliding hiatus hernia with postoperative changes. 6. Fat infiltration of the liver.
[2024-07-17 15:28] VITALS: BP 139/81; PULSE 98; RESP 16; TEMP 36.7; O2SAT 98
--- NOTE | 2024-07-17 16:19 | ECG_ITS ---
Test Date: 2024-07-17 17:03:41 Measurements Intervals [place] Rate: 87 P: 44 IN: 142 QRS: 14 QRSD: 93 T: 46 QT: 375 QTc: 452 Interpretive Statements SINUS RHYTHM LOW QRS VOLTAGE IN PRECORDIAL LEADS [QRS DEFLECTION < 1.0 mV IN CHEST LEADS] No previous ECG available for comparison Electronically Signed On 07-21-2024 14:36:20 BRAKE OPERATOR HELPER by Bam Mejia M.D.
--- NOTE | 2024-07-17 16:20 | ED.GENADULT ---
HPI - General Adult General Chief complaint: Fall Stated complaint: fell, left rib pain Time Seen by Provider: 07/17/24 19:26 Focused HPI: 63-year-old female with reported history of PE not anticoagulated presents to the emergency department for multiple medical complaints. Patient is reporting left posterior chest wall/rib pain for 1 day. She denies injury trauma but does state only receive she had been drinking and had a fall. She denied head or lose consciousness. However she did not began developing her chest in the left posterior ribs until yesterday. She states this morning when she was helping her mother get dressed she began having anterior chest pain that lasted approximately 30 minutes. No radiation. She has not had pain since. States she is concerned she may have a PE given her history. GENERAL: Well-appearing, well-nourished, and in no acute distress. HEAD: Normocephalic, atraumatic. CHEST: Clear to auscultation. ?No respiratory distress. Tenderness to the left posterior chest wall overlying skin changes or rashes HEART: Regular rate and rhythm.? NEURO: ?Alert and oriented x3. Patient screened in triage and initial orders placed.? ?Additional care and disposition to be based upon?diagnostic testing and treatment. Related Data Home Medications ?Medication ?Instructions ?Recorded ?Confirmed ?Last Taken ?Type Adult One Daily Multivitamin 1 tablet PO DAILY 06/15/21 10/26/21 Unknown History calcium 500 mg-vitamin D3 100 1 tablet PO DAILY 10/26/21 10/26/21 Unknown History unit-vitamin K 40 mcg chewable tablet Allergies Allergy/AdvReac Type Severity Reaction Status Date / Time poison keo extract Allergy Unknown RASH Verified 07/17/24 19:19 vancomycin Allergy Unknown Unknown Verified 07/17/24 19:19 adhesive tape AdvReac Unknown RASH,ITCHIN Verified 07/17/24 19:19 G codeine AdvReac Unknown NAUSEA Verified 07/17/24 19:19 PMFSH Past Medical History Medical History Acne vulgaris Acute pulmonary embolism Acute respiratory failure with hypoxia Chronic low back pain without sciatica Elevated troponin I level GERD without esophagitis History of COVID-19 06/2020 Pulmonary embolism Vitamin D deficiency Surgical History Surgical History H/O hernia repair (~06/16/21) exploratory laparotomy for internal hernia H/O varicose vein stripping 2010 History of bilateral knee replacement 2014 History of 1979 and 1987 History of cholecystectomy 1986 History of gastric bypass 1992 History of laparotomy 12/2018 - 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 History of umbilical hernia repair 1993 Family History Family History Mother Diabetes mellitus Hypertension Father Carcinoma of colon Grandparent Heart attack Social History Social History Social History: She works in a [employer]. . Does not have a living will. Has not designated a healthcare power of trust and estates attorney. Smoking status: Never smoker Second hand tobacco smoke exposure: Yes (Previous smoked in home for 30 years.) Alcohol intake: current Drinks per week: 5 Substance use: former Substance use type: does not use Lack of Transportation: No Lack of Food: Never True Current Housing: I Have Housing Concerned About Future Housing: No Difficulty Paying Gas/Electric Bills: No Difficulty Paying for Meds: No Currently Unemployed: No Education: Associate Degree Difficulty w/ Childcare or Family Care: No Living arrangements: with friend(s) Additional living arrangements comments: Boyfriend Occupation/Education: occupation Additional occupation/education comments: Call center Gender identity (if verbalized by the patient): Female Sexual Orientation (if Verbalized by the Patient): Straight or Heterosexual Spiritual care concerns: No Course Vital Signs Vital signs: Vital Signs Temperature 98.0 F 07/17/24 15:28 Pulse Rate 98 07/17/24 15:28 Respiratory Rate 16 07/17/24 15:28 Blood Pressure 139/81 07/17/24 15:28 Pulse Oximetry 98 07/17/24 15:28 Oxygen Delivery Room Air 07/17/24 15:28 Temperature 98.0 F 07/17/24 15:28 Pulse Rate 84 07/18/24 00:15 Respiratory Rate 15 07/18/24 00:15 Blood Pressure 130/78 07/18/24 00:15 Pulse Oximetry 99 07/18/24 00:15 Oxygen Delivery Room Air 07/17/24 15:28 Medical Decision Making Vital Signs Vital Signs: Vital Signs Temperature 98.0 F 07/17/24 15:28 Pulse Rate 98 07/17/24 15:28 Respiratory Rate 16 07/17/24 15:28 Blood Pressure 139/81 07/17/24 15:28 Pulse Oximetry 98 07/17/24 15:28 Oxygen Delivery Room Air 07/17/24 15:28 Temperature 98.0 F 07/17/24 15:28 Pulse Rate 84 07/18/24 00:15 Respiratory Rate 15 07/18/24 00:15 Blood Pressure 130/78 07/18/24 00:15 Pulse Oximetry 99 07/18/24 00:15 Oxygen Delivery Room Air 07/17/24 15:28 Lab Data 07/17/24 16:59 07/17/24 16:59 Labs: Lab Results 07/17/24 07/17/24 Range/Units 16:59 21:07 WBC 8.0 (4.5-10.0) K/mm3 RBC 3.96 L (4.2-5.4) M/mm3 Hgb 11.8 L (12.0-15.0) g/dL Hct 36.5 L (37.0-47.0) % MCV 92.2 (80-100) fl MCH 29.8 (26-34) pg MCHC 32.3 (32-36) g/dl RDW 15.1 H (11.5-14.5) % Plt Count 288 D (150-375) k/mm3 MPV 8.9 (7.4-10.4) fl Immature Gran % (Auto) 0.1 (0-0.5) % Neut % (Auto) 87.0 H (45.5-73.1) % Lymph % (Auto) 7.2 L (18.3-44.2) % [place] % (Auto) 4.8 (2.6-8.5) % Eos % (Auto) 0.4 (0-4.4) % Baso % (Auto) 0.5 (0.2-1.2) % Lymph # (Auto) 0.57 L (0.9-3.2) K/mm3 [place] # (Auto) 0.4 (0.1-0.6) K/mm3 Eos # (Auto) 0.0 (0-0.3) K/mm3 Baso # (Auto) 0.0 (0.0-0.1) K/mm3 Abs Immat Gran (auto) 0.01 (0.00-0.031) K/mm3 Absolute Neuts (auto) 6.9 H (1.3-6.7) K/mm3 Absolute Nucleated RBC 0.000 (0.0-0.012) K/mm3 Nucleated RBC % 0.0 (0.0-0.2) % PT 16.0 H (11.1-14.7) Seconds INR 1.2 APTT 24.5 (22.3-36.8) Seconds Sodium 133 L (137-145) mmol/L Potassium 3.5 (3.4-5.0) mmol/L Chloride 103 (98-107) mmol/L Carbon Dioxide 28 (22-30) mmol/L Anion Gap 2 L (4-12) mmol/L BUN 7 (7-17) mg/dL Creatinine 0.50 L (0.7-1.0) mg/dL Estim Creat Clear Calc 86 ml/min Estimated GFR > 60 (59 - ) Glucose 194 H (65-110) mg/dL Calcium 8.2 L (8.4-10.2) mg/dL Total Bilirubin 1.0 (0.2-1.3) mg/dL AST 988 H (14-36) U/L ALT 284 H (6-35) U/L Alkaline Phosphatase 189 H (38-126) U/L Troponin I < 0.012 < 0.012 (0.000-0.034) ng/mL NT-Pro-B Natriuret Pep 721 H (19.9-100) pg/mL Total Protein 7.0 (6.3-8.2) g/dL Albumin 3.8 (3.5-5.1) g/dL Lipase 99 (23-300) U/L Discharge Plan Discharge Clinical Impression: Fracture of rib, Atypical chest pain Patient Disposition: Home, Self-Care Condition: Stable Instructions: Antibiotic Form, Chest Pain (DC), Rib Fracture (ED) Additional Instructions: You were seen in the emergency department for rib pain. He fractured 11th rib. Please use Tylenol for pain and oxycodone for breakthrough pain. Use the incentive spirometer 10 times per hour while awake. Return to the ED if you develop Fevers, chest pain, shortness of breath, or signs of pneumonia. Patient Language: Swedish Prescriptions: New acetaminophen 500 mg tablet 1,000 mg PO TID PRN (Reason: dina) 7 Days Qty: 42 0RF oxycodone 5 mg tablet 5 mg PO Q4H PRN (Reason: pain) Qty: 14 0RF No Action calcium-vitamin D3-vitamin K 500-100-40 mg-unit-mcg tablet,chewable 1 tablet PO DAILY Adult One Daily Multivitamin 1 tablet PO DAILY potassium chloride 20 mEq tablet,ER particles/crystals 20 meq PO BID Qty: 14 0RF Eliquis 5 mg tablet 5 mg PO Q12HR Qty: 180 1RF Follow-up/Referrals: Jessica Guajardo CNM [Primary Care Provider] -
[2024-07-17 17:04] LABS: Basophils Percent Auto 0.5 % (0.2-1.2); Eosinophils Percent Auto 0.4 % (0-4.4); Hematocrit 36.5 % (37.0-47.0); Hemoglobin 11.8 g/dL (12.0-15.0); Immature Granulocyte Absolute 0.01 K/mm3 (0.00-0.031); Immature Granulocyte Percent A 0.1 % (0-0.5); Lymphocytes Absolute Auto 0.57 K/mm3 (0.9-3.2); Lymphocytes Percent Auto 7.2 % (18.3-44.2); Mean Corpuscular HGB Conc 32.3 g/dl (32-36); Mean Corpuscular Hemoglobin 29.8 pg (26-34); Mean Corpuscular Volume 92.2 fl (80-100); Mean Platelet Volume 8.9 fl (7.4-10.4); Monocytes Absolute Auto 0.4 K/mm3 (0.1-0.6); Monocytes Percent Auto 4.8 % (2.6-8.5); Neutrophils Absolute Auto 6.9 K/mm3 (1.3-6.7); Platelet Count Result 288 k/mm3 (150-375); Red Blood Count 3.96 M/mm3 (4.2-5.4); Red Cell Distribution Width 15.1 % (11.5-14.5)
[2024-07-17 17:13] LABS: Potassium 3.5 mmol/L (3.4-5.0)
[2024-07-17 17:19] LABS: INR 1.2
[2024-07-17 17:20] LABS: Partial Thromboplastin Time 24.5 Seconds (22.3-36.8)
[2024-07-17 17:24] LABS: Alanine Aminotransferase 284 U/L (6-35); Albumin Level 3.8 g/dL (3.5-5.1); Alkaline Phosphatase 189 U/L (38-126); Anion Gap 2 mmol/L (4-12); Blood Urea Nitrogen 7 mg/dL (7-17); Calcium 8.2 mg/dL (8.4-10.2); Carbon Dioxide 28 mmol/L (22-30); Chloride 103 mmol/L (98-107); Estimated CRCL calculation 86 ml/min; Estimated Glomerular Filt Rate > 60; Glucose 194 mg/dL (65-110); Lipase 99 U/L (23-300); Sodium 133 mmol/L (137-145)
[2024-07-17 17:25] LABS: NT Pro B Type Natriuretic Pept 721 pg/mL (19.9-100); Troponin I < 0.012 ng/mL (0.000-0.034)
[2024-07-17 17:35] LABS: Aspartate Amino Transferase 988 U/L (14-36)
--- NOTE | 2024-07-17 19:34 | ECG_ITS ---
Test Date: 2024-07-17 21:13:24 Measurements Intervals [place] Rate: 84 P: 45 VA: 147 QRS: 18 QRSD: 90 T: 51 QT: 382 QTc: 452 Interpretive Statements SINUS RHYTHM LOW QRS VOLTAGE IN PRECORDIAL LEADS [QRS DEFLECTION < 1.0 mV IN CHEST LEADS] Compared to ECG 07/17/2024 17:03:41 No significant changes Electronically Signed On 07-21-2024 14:52:16 GEAR GRINDER by Bam Mejia M.D.
[2024-07-17] MEDS: HYDROcodone/acetaminophen (*CRX) 5-325 MG TABLET 2 TAB PO (20:11)
[2024-07-17] MEDS: ONDANSETRON INJ 4 MG/2 ML VIAL IV PUSH (21:10)
[2024-07-17 21:34] LABS: Troponin I < 0.012 ng/mL (0.000-0.034)
--- NOTE | 2024-07-17 22:02 | ED_ITS ---
HPI - General Adult General Chief complaint: Fall Stated complaint: fell, left rib pain Time Seen by Provider: 07/17/24 19:26 Related Data Home Medications ?Medication ?Instructions ?Recorded ?Confirmed ?Last Taken ?Type Adult One Daily Multivitamin 1 tablet PO DAILY 06/15/21 10/26/21 Unknown History calcium 500 mg-vitamin D3 100 1 tablet PO DAILY 10/26/21 10/26/21 Unknown History unit-vitamin K 40 mcg chewable tablet Allergies Allergy/AdvReac Type Severity Reaction Status Date / Time poison keo extract Allergy Unknown RASH Verified 07/17/24 19:19 vancomycin Allergy Unknown Unknown Verified 07/17/24 19:19 adhesive tape AdvReac Unknown RASH,ITCHIN Verified 07/17/24 19:19 G codeine AdvReac Unknown NAUSEA Verified 07/17/24 19:19 PMFSH Past Medical History Medical History Acne vulgaris Acute pulmonary embolism Acute respiratory failure with hypoxia Chronic low back pain without sciatica Elevated troponin I level GERD without esophagitis History of COVID-19 06/2020 Pulmonary embolism Vitamin D deficiency Surgical History Surgical History H/O hernia repair (~06/16/21) exploratory laparotomy for internal hernia H/O varicose vein stripping 2009 History of bilateral knee replacement 2014 History of 1979 and 1987 History of cholecystectomy 1987 History of gastric bypass 1992 History of laparotomy 12/2018 - 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 History of umbilical hernia repair 1993 Family History Family History Mother Diabetes mellitus Hypertension Father Carcinoma of colon Grandparent Heart attack Social History Social History Social History: She works in a [employer] center. . Does not have a living will. Has not designated a healthcare power of real estate associate attorney. Smoking status: Never smoker Second hand tobacco smoke exposure: Yes (Previous smoked in home for 30 years.) Alcohol intake: current Drinks per week: 5 Substance use: former Substance use type: does not use Lack of Transportation: No Lack of Food: Never True Current Housing: I Have Housing Concerned About Future Housing: No Difficulty Paying Gas/Electric Bills: No Difficulty Paying for Meds: No Currently Unemployed: No Education: Associate Degree Difficulty w/ Childcare or Family Care: No Living arrangements: with friend(s) Additional living arrangements comments: Boyfriend Occupation/Education: occupation Additional occupation/education comments: Call center Gender identity (if verbalized by the patient): Female Sexual Orientation (if Verbalized by the Patient): Straight or Heterosexual Spiritual care concerns: No Exam 2 Narrative: APPEARANCE: No apparent distress. Head: atraumatic. EYES: EOMI, NOSE: Atraumatic NECK: Trachea midline RESPIRATORY: Clear to auscultation CARDIOVASCULAR: RRR, ABDOMINAL: Non-distended soft nontender MUSCULOSKELETAl: tenderness palpation along lower posterior ribs/CVA area NEURO: Alert. Moving 4/4 extremities SKIN:: Warm, dry. Normal color PSYCHIATRIC: Normal affect Course Vital Signs Vital signs: Vital Signs Temperature 98.0 F 07/17/24 15:28 Pulse Rate 98 07/17/24 15:28 Respiratory Rate 16 07/17/24 15:28 Blood Pressure 139/81 07/17/24 15:28 Pulse Oximetry 98 07/17/24 15:28 Oxygen Delivery Room Air 07/17/24 15:28 Temperature 98.0 F 07/17/24 15:28 Pulse Rate 98 07/17/24 15:28 Respiratory Rate 16 07/17/24 15:28 Blood Pressure 139/81 07/17/24 15:28 Pulse Oximetry 98 07/17/24 15:28 Oxygen Delivery Room Air 07/17/24 15:28 Medical Decision Making MDM Narrative Medical decision making narrative: -Course: 63-year-old female presenting for chest pain and left flank pain after falling on [place] while intoxicated.. Chest pain workup was negative. Her pain is actually resolved she is resting comfortably in bed. She has tenderness over the posterior flank. CT showed posterior 11th rib fractures. Patient given pain medication and incentive spirometer. Given return precautions for pneumonia. Incidentally patient's liver enzymes were elevated and alcohol abuse pattern. Patient is a heavy drinker. -DDX includes but is not limited to: ACS, pneumonia PE pneumothorax rib fracture, kidney stone -Co-morbidities complicating care: alcohol abuse -Shared decision making / Disposition: discharge Vital Signs Vital Signs: Vital Signs Temperature 98.0 F 07/17/24 15:28 Pulse Rate 98 07/17/24 15:28 Respiratory Rate 16 07/17/24 15:28 Blood Pressure 139/81 07/17/24 15:28 Pulse Oximetry 98 07/17/24 15:28 Oxygen Delivery Room Air 07/17/24 15:28 Temperature 98.0 F 07/17/24 15:28 Pulse Rate 98 07/17/24 15:28 Respiratory Rate 16 07/17/24 15:28 Blood Pressure 139/81 07/17/24 15:28 Pulse Oximetry 98 07/17/24 15:28 Oxygen Delivery Room Air 07/17/24 15:28 Lab Data 07/17/24 16:59 07/17/24 16:59 Labs: Lab Results 07/17/24 07/17/24 Range/Units 16:59 21:07 WBC 8.0 (4.5-10.0) K/mm3 RBC 3.96 L (4.2-5.4) M/mm3 Hgb 11.8 L (12.0-15.0) g/dL Hct 36.5 L (37.0-47.0) % MCV 92.2 (80-100) fl MCH 29.8 (26-34) pg MCHC 32.3 (32-36) g/dl RDW 15.1 H (11.5-14.5) % Plt Count 288 D (150-375) k/mm3 MPV 8.9 (7.4-10.4) fl Immature Gran % (Auto) 0.1 (0-0.5) % Neut % (Auto) 87.0 H (45.5-73.1) % Lymph % (Auto) 7.2 L (18.3-44.2) % [place] % (Auto) 4.8 (2.6-8.5) % Eos % (Auto) 0.4 (0-4.4) % Baso % (Auto) 0.5 (0.2-1.2) % Lymph # (Auto) 0.57 L (0.9-3.2) K/mm3 [place] # (Auto) 0.4 (0.1-0.6) K/mm3 Eos # (Auto) 0.0 (0-0.3) K/mm3 Baso # (Auto) 0.0 (0.0-0.1) K/mm3 Abs Immat Gran (auto) 0.01 (0.00-0.031) K/mm3 Absolute Neuts (auto) 6.9 H (1.3-6.7) K/mm3 Absolute Nucleated RBC 0.000 (0.0-0.012) K/mm3 Nucleated RBC % 0.0 (0.0-0.2) % PT 16.0 H (11.1-14.7) Seconds INR 1.2 APTT 24.5 (22.3-36.8) Seconds Sodium 133 L (137-145) mmol/L Potassium 3.5 (3.4-5.0) mmol/L Chloride 103 (98-107) mmol/L Carbon Dioxide 28 (22-30) mmol/L Anion Gap 2 L (4-12) mmol/L BUN 7 (7-17) mg/dL Creatinine 0.50 L (0.7-1.0) mg/dL Estim Creat Clear Calc 86 ml/min Estimated GFR > 60 (59 - ) Glucose 194 H (65-110) mg/dL Calcium 8.2 L (8.4-10.2) mg/dL Total Bilirubin 1.0 (0.2-1.3) mg/dL AST 988 H (14-36) U/L ALT 284 H (6-35) U/L Alkaline Phosphatase 189 H (38-126) U/L Troponin I < 0.012 < 0.012 (0.000-0.034) ng/mL NT-Pro-B Natriuret Pep 721 H (19.9-100) pg/mL Total Protein 7.0 (6.3-8.2) g/dL Albumin 3.8 (3.5-5.1) g/dL Lipase 99 (23-300) U/L Discharge Plan Discharge Clinical Impression: Fracture of rib, Atypical chest pain Patient Disposition: Home, Self-Care Condition: Stable Instructions: Antibiotic Form, Chest Pain (DC), Rib Fracture (ED) Additional Instructions: You were seen in the emergency department for rib pain. He fractured 11th rib. Please use Tylenol for pain and oxycodone for breakthrough pain. Use the incentive spirometer 10 times per hour while awake. Return to the ED if you develop Fevers, chest pain, shortness of breath, or signs of pneumonia. Patient Language: Peruvian Prescriptions: New acetaminophen 500 mg tablet 1,000 mg PO TID PRN (Reason: dina) 7 Days Qty: 42 0RF oxycodone 5 mg tablet 5 mg PO Q4H PRN (Reason: pain) Qty: 14 0RF No Action calcium-vitamin D3-vitamin K 500-100-40 mg-unit-mcg tablet,chewable 1 tablet PO DAILY Adult One Daily Multivitamin 1 tablet PO DAILY potassium chloride 20 mEq tablet,ER particles/crystals 20 meq PO BID Qty: 14 0RF Eliquis 5 mg tablet 5 mg PO Q12HR Qty: 180 1RF Follow-up/Referrals: Jessica Guajardo CNM [Primary Care Provider] -
[2024-07-18 00:15] VITALS: BP 130/78; PULSE 84; RESP 15; O2SAT 99
== END 2024-07-18 00:16 | disposition home or self-care (01) ==
PROVIDERS: Physician Assistant; Emergency Provider Emergency Medicine; PCP Advanced Practice Midwife
DX: S22.32XA Fracture of one rib, left side, initial encounter for closed fracture (principal); R07.89 Other chest pain; K21.9 Gastro-esophageal reflux disease without esophagitis; E55.9 Vitamin D deficiency, unspecified; Z98.84 Bariatric surgery status; Z96.653 Presence of artificial knee joint, bilateral; Z86.711 Personal history of pulmonary embolism; Z86.16 Personal history of COVID-19; Z90.49 Acquired absence of other specified parts of digestive tract; Z77.22 Contact with and (suspected) exposure to environmental tobacco smoke (acute) (chronic); W19.XXXA Unspecified fall, initial encounter
CPT/HCPCS: 36415; 71275; 74176; 80053; 83690; 83880; 84484; 85025; 85610; 85730; 93005; 96374; 99284; A9270; J2405; Q9967

== ENCOUNTER 2024-12-17 15:54 | Outpatient (CLI) | payer OTHER, SELFPAY ==
--- NOTE | ~2024-12-17 | MM_ITS ---
EXAMINATION: MM screening gomez BI w lolly HISTORY: Screening mammogram TECHNIQUE: Craniocaudal and mediolateral oblique 3-D tomosynthesis images were obtained and synthetic 2-D images were generated. CAD analysis was submitted and interpreted. COMPARISON: 08/14/2023 through 02/27/2019 BREAST PARENCHYMAL COMPOSITION: There are scattered areas of fibroglandular density. FINDINGS: There is no evidence of suspicious mass, calcification, or architectural distortion to sug gest malignancy in either breast. There has been no suspicious interval change. IMPRESSION: 1. No mammographic evidence of malignancy. 2. Recommend routine screening mammography in one year. BI-RADS Category 1: Negative Reviewed, dictated and finalized at location B.
== END 2024-12-17 15:55 | disposition home or self-care (01) ==
LOC: MICIMG 15:55
PROVIDERS: PCP Advanced Practice Midwife; Visit Provider Advanced Practice Midwife
DX: Z12.31 Encounter for screening mammogram for malignant neoplasm of breast (principal)
CPT/HCPCS: 77063; 77067